=== PATIENT | male | born 1975 | race American Indian/Alaskan Native ===

== ENCOUNTER 2017-03-13 18:14 | Observation (INO) | payer MEDICAID, OTHER ==
--- NOTE | 2017-03-13 18:36 | ED PDOC ---
"Arrival/HPI - General Chief Complaint: GI Problem Time Seen by Provider: 03/13/17 18:32 Historian: Patient - History of Present Illness Narrative History of Present Illness (Text): 03/13/17 18:33 41 y/o male, pmh including perforated PUD ([facility] [place] previous alcohol abuser, c/o abdominal pain/nausea/vomiting with bright red blood started today. Pt. stated that he doesn't have any pmd or GI doctor follow up for his chronic PUD, woke up this morning with nausea and continuous vomiting which he stated that he had couple episodes of bright red blood bleeding, associated with abdominal pain, no black or discolored stool, no chest pain or shortness of breath, no night sweat, no rash, no other medical or psychological complaints. Past Medical History - Provider Review Nursing Documentation Reviewed: Yes - Past History Past History: Non-Contributing - Infectious Disease Hx of Infectious Diseases: None - Cardiac Hx Cardiac Disorders: No - Pulmonary Hx Respiratory Disorders: No - Neurological Hx Neurological Disorder: No - HEENT Hx HEENT Disorder: No - Renal Hx Renal Disorder: No - Endocrine/Metabolic Hx Endocrine Disorders: No - Hematological/Oncological Hx Blood Disorders: No - Integumentary Hx Dermatological Disorder: No - Musculoskeletal/Rheumatological Hx Musculoskeletal Disorders: No - Gastrointestinal Hx Gastrointestinal Disorders: Yes Hx Gastrointestinal Ulcer: Yes - Genitourinary/Gynecological Hx Genitourinary Disorders: No - Psychiatric Hx Psychophysiologic Disorder: No Hx Substance Use: No - Surgical History Hx Appendectomy: Yes Other/Comment: hernia repair, GI ulcer - Anesthesia Hx Anesthesia: Yes Hx Anesthesia Reactions: No Hx Malignant Hyperthermia: No Family/Social History - Physician Review Nursing Documentation Reviewed: Yes Family/Social History: Unknown Family HX Smoking Status: Light Smoker < 10 Cigarettes Daily Hx Alcohol Use: Yes Frequency of alcohol use: Socially Hx Substance Use: No Allergies/Home Meds Allergies/Adverse Reactions: Allergies No Known Allergies Allergy (Verified 03/13/17 18:26) Review of Systems - Review of Systems Constitutional: Other (+diaphoretic). absent: Fatigue, Fevers Eyes: absent: Vision Changes ENT: absent: Hearing Changes Respiratory: absent: SOB, Cough Cardiovascular: absent: Chest Pain Gastrointestinal: Abdominal Pain, Nausea, Vomiting. absent: Diarrhea Musculoskeletal: absent: Arthralgias, Back Pain Skin: absent: Rash, Pruritis Neurological: absent: Headache, Dizziness Psychiatric: absent: Anxiety, Depression, Suicidal Ideation Physical Exam Vital Signs Reviewed: Yes Vital Signs Temp Pulse Resp BP Pulse Ox 03/14/17 00:40 97.9 F 78 16 128/72 96 03/13/17 21:07 56 L 16 179/100 H 97 03/13/17 18:24 98.7 F 102 H 18 171/83 H 95 Temperature: Afebrile Blood Pressure: Hypertensive Pulse: Tachycardic Respiratory Rate: Normal Appearance: Positive for: Ill-Appearing, Uncomfortable Pain Distress: Severe Mental Status: Positive for: Alert and Oriented X 3 - Systems Exam Head: Present: Atraumatic, Normocephalic Pupils: Present: PERRL Extroacular Muscles: Present: EOMI Conjunctiva: Present: Normal Mouth: Present: Moist Mucous Membranes Neck: Present: Normal Range of Motion Respiratory/Chest: Present: Clear to Auscultation, Good Air Exchange. No: Respiratory Distress, Accessory Muscle Use Cardiovascular: Present: Regular Rate and Rhythm, Normal S1, S2. No: Murmurs Abdomen: Present: Tenderness (epigastric and generalized). No: Distention, Peritoneal Signs, Rebound, Guarding Rectal: Present: Other (Pt. declined. ) Back: Present: Normal Inspection Upper Extremity: Present: Normal Inspection. No: Cyanosis, Edema Lower Extremity: Present: Normal Inspection. No: Edema Neurological: Present: GCS=15, Speech Normal, Motor Func Grossly Intact, Gait Normal, Memory Normal Skin: Present: Warm, Dry, Normal Color. No: Rashes Psychiatric: Present: Alert, Oriented x 3, Normal Insight, Normal Concentration Medical Decision Making ED Course and Treatment: 03/13/17 18:44 -labs/lipase/ua/type and screen/pt/ptt -CT abdomen and pelvis -CXR -EKG -IVF/protonix 40/zofran 8mg IV -observe and reassess 03/13/17 21:35 -Chest xray: ER wet read, no active disease -EKG: Sinus Bradycardia @ 58 BPM, no ST elevation or depression, T wave inversion on the lead II/III/aVF, no previous ekg available for comparison. -Labs are non-significant except wbc 11.1 and troponin 0.03 (which is towards interdeterminate region). -Lipase within normal limit. -Alcohol within normal limit. -Aspirin 325mg po and pepcid 20mg po ordered. -Pt. refused guaiac. -CT abdomen and pelvis with IV contrast as he declined PO contrast show: show possible bowel wall thickening for enterocolitis. -Pt. has no diarrhea, just nausea and vomiting/abdominal pain. 03/13/17 22:36 -Pt. still having nausea and vomiting, unable to tolerate PO. -Pt. is po intolerance, visualized the bright red blood vomitus, unstable to be discharged home. -Drug screen positive for cannabinoid. -I explained to the patient that the pain possibly from the GI source but the abnormal ekg with indeterminate troponin level along with diaphoratic presentation can also be signs of ACS syndrome especially there is no previous ekg available for comparison, pt. will need to be admitted for the 24 hours troponin level and observation. 03/13/17 22:42 -I spoke to the medical review specialist, discussed about the case/labs/radiology results, will discuss with night house doctor Dr. Ramírez. Dr. Ramírez paged. -I spoke to Dr. Ramírez, discussed about the case/labs/radiology results, agreed that the patient needs to be observed overnight. - Lab Interpretations Lab Results: 03/14/17 18:30 03/14/17 05:15 Lab Results 03/14/17 18:30: Hgb 14.0, Hct 41.0 L 03/14/17 12:40: Hgb 13.6 L 03/14/17 11:45: Lactate Dehydrogenase 423, Total Creatine Kinase 293 H, CK-MB ( CK-2) 2.2, CK-MB (CK-2) % Cancelled, Troponin I 0.02 D 03/14/17 05:15: Sodium 140, Potassium 3.9, Chloride 107, Carbon Dioxide 24, Anion Gap 13, BUN 16, Creatinine 0.9, Est GFR ( Amer) > 60, Est GFR (Non- Af Amer) > 60, Random Glucose 91, Calcium 8.6, Total Bilirubin 1.3, AST 29, ALT 28, Alkaline Phosphatase 60, Lactate Dehydrogenase 457, Total Creatine Kinase 284 H, CK-MB (CK-2) 2.4, CK-MB (CK-2) % Cancelled, Troponin I 0.01, Total Protein 6.5, Albumin 3.7, Globulin 2.9, Albumin/Globulin Ratio 1.3, Triglycerides 36, Cholesterol 165, LDL Cholesterol Direct 91, HDL Cholesterol 64 H 03/14/17 05:15: WBC 12.4 H, RBC 4.42, Hgb 13.8 L D, Hct 40.2 L, MCV 91.0, MCH 31.2, MCHC 34.3, RDW 13.2, Plt Count 167, MPV 12.0 H, Gran % 76.1 H, Lymph % ( Auto) 15.8 L, Teller % (Auto) 7.8 H, Eos % (Auto) 0.2 L, Baso % (Auto) 0.1, Gran # 9.41 H, Lymph # 2.0, Teller # 1.0 H, Eos # 0.0, Baso # 0.01 03/14/17 05:15: Hemoglobin A1c 5.6 03/13/17 22:04: Lactate Dehydrogenase 467, Total Creatine Kinase 292 H, CK-MB ( CK-2) 2.8, CK-MB (CK-2) % Cancelled, Troponin I < 0.01 D 03/13/17 21:30: Urine Opiates Screen Negative, Urine Methadone Screen Negative, Ur Barbiturates Screen Negative, Ur Phencyclidine Scrn Negative, Ur Amphetamines Screen Negative, U Benzodiazepines Scrn Negative, U Oth Cocaine Metabols Negative, U Cannabinoids Screen Positive H 03/13/17 19:54: Blood Type Confirm O POSITIVE 03/13/17 19:18: Blood Type O POSITIVE, Antibody Screen Negative, BBK History Checked No verified bt 03/13/17 18:50: Alcohol, Quantitative < 10 03/13/17 18:50: WBC 11.1 H, RBC 5.20, Hgb 16.6, Hct 47.1, MCV 90.6, MCH 31.9, MCHC 35.2, RDW 12.9, Plt Count 201, MPV 12.1 H, Gran % 81.1 H, Lymph % (Auto) 12.5 L, Teller % (Auto) 6.1 H, Eos % (Auto) 0.2 L, Baso % (Auto) 0.1, Gran # 9.02 H, Lymph # 1.4, Teller # 0.7 H, Eos # 0.0, Baso # 0.01 03/13/17 18:50: Sodium 144, Potassium 3.9, Chloride 106, Carbon Dioxide 25, Anion Gap 17, BUN 16, Creatinine 0.9, Est GFR ( Amer) > 60, Est GFR (Non- Af Amer) > 60, Random Glucose 128 H, Calcium 9.7, Magnesium 1.7, Total Bilirubin 1.3, AST 36, ALT 28, Alkaline Phosphatase 92, Lactate Dehydrogenase 610, Total Creatine Kinase 330 H, CK-MB (CK-2) 2.9, CK-MB (CK-2) % Cancelled, Troponin I 0.03, Total Protein 8.7 H, Albumin 4.9 H, Globulin 3.8, Albumin/ Globulin Ratio 1.3, Lipase 91 03/13/17 18:50: PT 12.8 H, INR 1.17 H, APTT 29.2 Interpretation: Abnormal lab values (wbc 11.1 and troponin 0.03) - RAD Interpretation Radiology Orders: 03/13/17 18:36 ABD & PELVIS IV CONTRAST ONLY [CT] Stat CHEST PORTABLE [RAD] Stat FINDINGS: Lower thorax: No acute findings. ABDOMEN: Liver: Approximately 1 cm hypoattenuating focus in the right lobe of the liver incompletely characterized on this study. Gallbladder and bile ducts: No acute abnormality as visualized. No calcified stones. No ductal dilation. Pancreas: No acute abnormality as visualized. Spleen: No splenomegaly. Adrenals: No acute abnormality as visualized. Kidneys and ureters: Bilateral subcentimeter hypoattenuating lesions, too small to characterized, statistically represent cysts. Symmetric enhancement. No hydronephrosis. TERRIE HESS | Final Radiology Report CONFIDENTIALITY STATEMENT This report is intended only for use by the referring physician, and only in accordance with law. If you received this in error, call [phone]. Page 2 of 2 Stomach and bowel: Evaluation significantly limited without enteric contrast. There are areas of apparent bowel wall thickening, particularly in the region and the right colon. Although appearance may be somewhat due to lack of distention, inflammation is a concern. No bowel obstruction. Appendix: No findings to suggest acute appendicitis. PELVIS: Bladder: No acute abnormality as visualized. Reproductive: No acute abnormality as visualized. ABDOMEN and PELVIS: Intraperitoneal space: Evidence of stranding in the mesentery. No free air. No significant fluid collection. Bones: Mild degenerative changes. Vasculature: Atherosclerosis. No abdominal aortic aneurysm. Lymph nodes: No acute abnormality as visualized. Surgical clips in epigastric region. Correlate with history. IMPRESSION: Evaluation significantly limited without enteric contrast. There are areas of apparent bowel wall thickening, particularly in the region of the right colon. Although appearance may be somewhat due to lack of distention, inflammation is a concern. Correlate for colitis/ enterocolitis. Please see additional details/findings as above. Correlate clinically. Followup as warranted. Thank you for allowing us to participate in the care of your patient. Dictated and Authenticated by: Dalila Garibay MD 03/13/2017 9:02 PM Eastern Time ([place] & [place]) Chest xray: no active disease Dictating Machine Typist: Radiologist - EKG Interpretation Interpreted by ED Physician: Yes Type: 12 lead EKG - Medication Orders Current Medication Orders: Discontinued Medications Al Hydrox/Mg Hydrox/Simethicone (Maalox Plus 30 Ml) 30 ml PO STAT STA Stop: 03/13/17 21:28 Last Admin: 03/13/17 22:35 Dose: 30 ml Aspirin (Aspirin) 325 mg PO STAT STA Stop: 03/13/17 20:08 Last Admin: 03/13/17 21:04 Dose: 325 mg Diphenhydramine HCl (Benadryl) 25 mg IVP ONCE ONE Stop: 03/14/17 01:28 Last Admin: 03/14/17 01:47 Dose: 25 mg IVP Administration Document 03/14/17 01:47 (Rec: 03/14/17 01:47 [id number]) Charges for Administration # of IVP Administrations 1 Diphenhydramine HCl (Benadryl) 25 mg IVP STAT STA Stop: 03/14/17 20:55 Last Admin: 03/14/17 21:30 Dose: 25 mg IVP Administration Document 03/14/17 21:30 KTB (Rec: 03/14/17 21:31 KTB [id number]) Charges for Administration # of IVP Administrations 1 Famotidine (Pepcid) 20 mg PO STAT STA Stop: 03/13/17 20:08 Last Admin: 03/13/17 21:04 Dose: 20 mg Sodium Chloride (Sodium Chloride 0.9%) 1,000 mls @ 999 mls/hr IV .Q1H1M STA Stop: 03/13/17 19:45 Last Admin: 03/13/17 18:50 Dose: 999 mls/hr eMAR Start Stop Document 03/13/17 18:50 HI (Rec: 03/13/17 19:23 HI [id number]) Intravenous Solution Start Date 03/13/17 Start Time 18:50 Sodium Chloride (Sodium Chloride 0.9%) 1,000 mls @ 250 mls/hr IV .Q4H LUIS Last Admin: 03/13/17 18:50 Dose: 250 mls/hr eMAR Start Stop Document 03/13/17 18:50 HI (Rec: 03/13/17 19:23 HI [id number]) Intravenous Solution Start Date 03/13/17 Start Time 18:50 Sodium Chloride (Sodium Chloride 0.9%) 1,000 mls @ 125 mls/hr IV .Q8H LUIS Last Admin: 03/15/17 09:31 Dose: 125 mls/hr eMAR Start Stop Document 03/15/17 09:31 SG (Rec: 03/15/17 09:31 SG [id number]) Intravenous Solution Start Date 03/15/17 Start Time 09:31 Pantoprazole Sodium (Protonix 40mg Ivpb) 40 mg in 100 mls @ 8 mls/hr IVPB .[id number] LUIS Last Admin: 03/14/17 13:24 Dose: 8 mls/hr eMAR Start Stop Document 03/14/17 13:24 MV (Rec: 03/14/17 13:25 MV [id number]) Intravenous Solution Start Date 03/14/17 Start Time 13:25 End Date 03/14/17 Sodium Chloride (Sodium Chloride 0.9%) 1,000 mls @ 75 mls/hr IV .[id number] LUIS Stop: 03/14/17 17:46 Metoclopramide HCl (Reglan) 10 mg IVP STAT STA Stop: 03/13/17 20:47 Last Admin: 03/13/17 21:04 Dose: 10 mg IVP Administration Document 03/13/17 21:04 HI (Rec: 03/13/17 21:04 HI [id number]) Charges for Administration # of IVP Administrations 1 Morphine Sulfate (Morphine) 2 mg IVP STAT STA Stop: 03/13/17 22:39 Last Admin: 03/13/17 23:38 Dose: 2 mg IVP Administration Document 03/13/17 23:38 SC (Rec: 03/13/17 23:38 [facility] [id number]) Charges for Administration # of IVP Administrations 1 Nicotine (Nicoderm Cq) 1 patch TD DAILY PRN PRN Reason: URGE TO SMOKE Ondansetron HCl (Zofran Inj) 4 mg IVP STAT STA Stop: 03/13/17 18:39 Last Admin: 03/13/17 18:50 Dose: 4 mg IVP Administration Document 03/13/17 18:50 HI (Rec: 03/13/17 19:23 HI [id number]) Charges for Administration # of IVP Administrations 1 Ondansetron HCl (Zofran Inj) 4 mg IVP STAT STA Stop: 03/13/17 18:40 Last Admin: 03/13/17 18:50 Dose: 4 mg IVP Administration Document 03/13/17 18:50 HI (Rec: 03/13/17 19:23 HI [id number]) Charges for Administration # of IVP Administrations 1 Ondansetron HCl (Zofran Inj) 4 mg IVP Q6H PRN PRN Reason: Nausea/Vomiting Pantoprazole Sodium (Protonix Inj) 40 mg IVP STAT STA Stop: 03/13/17 18:39 Last Admin: 03/13/17 18:50 Dose: 40 mg IVP Administration Document 03/13/17 18:50 HI (Rec: 03/13/17 19:22 HI [id number]) Charges for Administration # of IVP Administrations 1 Pantoprazole Sodium (Protonix Inj) 40 mg IVP STAT STA Stop: 03/13/17 23:39 Last Admin: 03/14/17 01:13 Dose: 40 mg IVP Administration Document 03/14/17 01:13 (Rec: 03/14/17 01:14 FC [id number]) Charges for Administration # of IVP Administrations 1 Pantoprazole Sodium (Protonix Inj) 40 mg IVP Q12 LUIS Last Admin: 03/15/17 09:30 Dose: 40 mg IVP Administration Document 03/15/17 09:30 SG (Rec: 03/15/17 09:30 SG [id number]) Charges for Administration # of IVP Administrations 1 Trazodone HCl (Desyrel) 50 mg PO ONCE ONE Stop: 03/15/17 02:34 Last Admin: 03/15/17 02:42 Dose: Not Given Non-Admin Reason: 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 Disposition/Present on Arrival - Present on Arrival Any Indicators Present on Arrival: No History of DVT/PE: No History of Uncontrolled Diabetes: No Urinary Catheter: No History of Decub. Ulcer: No History Surgical Site Infection Following: None - Disposition Have Diagnosis and Disposition been Completed?: Yes Diagnosis: Abnormal EKG, Intractable vomiting with nausea, Abdominal pain Disposition: HOSPITALIZED Disposition Time: 22:36 Patient Plan: Observation Condition: STABLE"
[2017-03-13] MEDS ORDERED: Sodium Chloride 0.9% 1,000 ML IV STA (18:45)
[2017-03-13] MEDS ORDERED: Sodium Chloride 0.9% 1,000 ML IV SCH (18:45)
[2017-03-13 19:13] LABS: BASO # 0.01 K/mm3 (0.0-2.0); BASO % 0.1 % (0.0-3.0); EOS % 0.2 % (1.5-5.0); GRAN # 9.02 (1.4-6.5); GRAN % 81.1 % (50.0-68.0); HEMATOCRIT 47.1 % (42.0-52.0); LYMPH # 1.4 (1.2-3.4); LYMPH % 12.5 % (22.0-35.0); MEAN CELL VOLUME 90.6 fl (80.0-105.0); MEAN CORPUSCULAR HEMOGLOBIN 31.9 pg (25.0-35.0); MEAN CORPUSCULAR HGB CONC 35.2 g/dl (31.0-37.0); MEAN PLATELET VOLUME 12.1 fl (7.0-11.0); MONO # 0.7 (0.1-0.6); MONO % 6.1 % (1.0-6.0); RED CELL DISTRIBUTION WIDTH 12.9 % (11.5-14.5); WHITE BLOOD COUNT 11.1 10^3/ul (4.5-11.0)
[2017-03-13 19:28] LABS: INR 1.17 (0.93-1.08); PARTIAL THROMBOPLASTIN TIME 29.2 Seconds (25.1-36.5)
[2017-03-13 19:31] LABS: TROPONIN I 0.03 ng/mL
[2017-03-13 19:39] LABS: GLUCOSE,RANDOM 128 mg/dL (70-110)
[2017-03-13 19:40] LABS: ALB/GLOB RATIO 1.3 (1.1-1.8); BLOOD UREA NITROGEN 16 mg/dL (7-21); CALCIUM 9.7 mg/dL (8.4-10.5); CARBON DIOXIDE 25 mmol/L (21-33); CHLORIDE 106 mmol/L (98-107); GFR AFRICAN-AMERICAN > 60; MAGNESIUM 1.7 mg/dL (1.7-2.2); POTASSIUM 3.9 mmol/L (3.6-5.0); SODIUM 144 mmol/L (132-148); TOTAL PROTEIN 8.7 g/dL (5.8-8.3)
[2017-03-13 19:41] LABS: ALKALINE PHOSPHATASE 92 U/L (38-126); ALT/SGPT 28 U/L (7-56); AST/SGOT 36 U/L (17-59); BILIRUBIN,TOTAL 1.3 mg/dL (0.2-1.3); LIPASE 91 U/L (23-300)
[2017-03-13] MEDS ORDERED: Iohexol 350 MG/100 ML VIAL ONE (20:15)
--- NOTE | 2017-03-13 21:03 | CT ---
EXAM: CT Abdomen and Pelvis With Intravenous Contrast CLINICAL HISTORY: 41 years old, male; Pain; Abdominal pain; Acute; Additional info: Abdominal pain/nausea/vomiting TECHNIQUE: Axial computed tomography images of the abdomen and pelvis with intravenous contrast. All CT scans at this facility use one or more dose reduction techniques, viz.: automated exposure control; ma/kV adjustment per patient size (including targeted exams where dose is matched to indication; i.e. head); or iterative reconstruction technique. MIP reconstructed images were created and reviewed. Coronal and sagittal reformatted images were created and reviewed. CONTRAST: 100 mL of OMNI 350 administered intravenously. COMPARISON: No relevant prior studies available. FINDINGS: Lower thorax: No acute findings. ABDOMEN: Liver: Approximately 1 cm hypoattenuating focus in the right lobe of the liver incompletely characterized on this study. Gallbladder and bile ducts: No acute abnormality as visualized. No calcified stones. No ductal dilation. Pancreas: No acute abnormality as visualized. Spleen: No splenomegaly. Adrenals: No acute abnormality as visualized. Kidneys and ureters: Bilateral subcentimeter hypoattenuating lesions, too small to characterized, statistically represent cysts. Symmetric enhancement. No hydronephrosis. Stomach and bowel: Evaluation significantly limited without enteric contrast. There are areas of apparent bowel wall thickening, particularly in the region and the right colon. Although appearance may be somewhat due to lack of distention, inflammation is a concern. No bowel obstruction. Appendix: No findings to suggest acute appendicitis. PELVIS: Bladder: No acute abnormality as visualized. Reproductive: No acute abnormality as visualized. ABDOMEN and PELVIS: Intraperitoneal space: Evidence of stranding in the mesentery. No free air. No significant fluid collection. Bones: Mild degenerative changes. Vasculature: Atherosclerosis. No abdominal aortic aneurysm. Lymph nodes: No acute abnormality as visualized. Surgical clips in epigastric region. Correlate with history. IMPRESSION: Evaluation significantly limited without enteric contrast. There are areas of apparent bowel wall thickening, particularly in the region of the right colon. Although appearance may be somewhat due to lack of distention, inflammation is a concern. Correlate for colitis/enterocolitis. Please see additional details/findings as above. Correlate clinically. Followup as warranted.
[2017-03-13] MEDS ORDERED: metroNIDAZOLE IV 500 mg/100 ml 500 MG/100 ML BAG IVPB STA (21:12)
[2017-03-13] MEDS ORDERED: Ciprofloxacin 400mg/200ml D5W 400 MG/200 ML BAG IVPB STA (21:12)
[2017-03-13] MEDS ORDERED: Alum-Mag Hydrox-Simethicone Susp (30 mL) PO STA (21:27)
[2017-03-13] MEDS ORDERED: Morphine 2 mg/ml ISec IVP STA (21:27)
[2017-03-13] MEDS ORDERED: Morphine 5 MG/ML SYRINGE IVP STA (22:38)
[2017-03-13 22:49] LABS: TROPONIN I < 0.01 ng/mL
[2017-03-13] MEDS ORDERED: Lactated Ringer's 1,000 ML IV SCH (23:00)
--- NOTE | 2017-03-13 23:05 | CP.PCM.HP ---
<Darien Wei - Last Filed: 03/13/17 23:29> History of Present Illness - History of Present Illness History of Present Illness: CC: abdominal pain Subjective: HPI: Patient is a 41 year old male with past medical history of PUD requiring open abdominal surgery ([facility] 2009), chronic ETOH abuse, marijuana user who presents to the emergency department for evaluation and treatment of abdominal pain without a specific provoking event. The pain is described as a dull aching sensation which originates at the epigastrum, and radiates diffusely throughout the abdomen. States that he experienced emesis x 12 in the morning which became bright red as the day progressed. Denies exacerbating/relieving factors. Denies recent travel and sick contacts. Patient denies intractable headache, fever, chills, dizziness, blurry vision, ringing in the ears, chest pain, shortness of breath, diarrhea, constipation, and urinary symptoms. ROS: 12 point review of systems negative except as indicated in HPI PMHx - PUD requiring open abdominal surgery ([facility] [place] 2009) ,chronic ETOH abuse sober since 2014, Marijuana use PSHx - open abdominal surgery ([facility] [place] 2009) FHx - parents when he was young SHx - social ETOH use (2 glasses of wine with dinner last night), marijunana use daily, 1/2 ppd x 17 years Allergies- NKDA Medications- none PMD- Dr. Que Rudolph in [facility]- [facility] in [place] Physical Examination: - Constitutional Appears: Non-toxic, No Acute Distress - Head Exam Head Exam: atraumatic, normocephalic - Eye Exam Eye Exam: Normal appearance, PERRL. absent: Scleral icterus - ENT Exam ENT Exam: Mucous Membranes Moist - Neck Exam Neck exam: Normal Inspection - Respiratory Exam Respiratory Exam: Normal Breathing Pattern - Cardiovascular Exam Cardiovascular Exam: bradycardic, +S1, +S2. absent: Gallop, JVD - GI/Abdominal Exam GI & Abdominal Exam: Normal Bowel Sounds, tender to palpation in the epigastric region, absent: Distended, Guarding, Pulsatile Mass, Rebound, Rigid -Rectal Exam GI & Abdominal Exam: Deferred at this time - Extremities Exam Extremities exam: Negative for: calf tenderness - Neurological Exam Neurological exam: Patient is awake, alert, responds to verbal stimuli, answers questions appropriately, follows commands, and moves extremities past midline - Psychiatric Exam Psychiatric exam: Normal Affect, Normal Mood - Skin Skin Exam: warm and dry Assessment and Plan: Patient is a 41 year old male with past medical history of PUD requiring open abdominal surgery ([facility] [place] 2009), chronic ETOH abuse, marijuana user who was admitted for evaluation and treatment of abdominal pain. GI Bleed - NPO - 2 large bore PIV - protonix 80mg IV total given and protonix gtt @ 8mls/hr - IVF NS @ 125 - type and screen if transfusion is required - CT of abdomen w/out contrast- apparent bowel wall thickening, particularly in the region of the right colon. Although appearance may be somewhat due to lack of distention, inflammation is a concern, potential for colitis- however WBC elevation is minimal, no fever, no diarrhea - GI consulted- appreciate recommendations EKG Abnormality - rule out ACS- no chest pain, no SOB - EKG reviewed and appreciated - Sinus karon, HR 58, QTc 394, T wave inversions in II, III, AVF - repeat EKG in AM - troponins trended- negative thus far - cardiac enzymes q8h x 3 - aspirin 325 given in ED - lipid panel - HbA1c - consider cardiology consult pending patient's clinical course Nausea/Vomitting - zofran - IVF NS @125 as per ED attending - NPO Leukocytosis - likely reactive - monitor closely via CBC Tobacco Abuse, Marijuana Abuse - UDS appreciated - nicotine patch offered - smoking cessation advised - patient education provided on dangers of tobacco abuse Prophylaxis - DVT ppx- scds - GI ppx- protonix drip Patient case discussed with and plan approved by attending physician. Present on Admission - Present on Admission Any Indicators Present on Admission: No Past Patient History - Infectious Disease Hx of Infectious Diseases: None - Past Social History Smoking Status: Light Smoker < 10 Cigarettes Daily - CARDIAC Hx Cardiac Disorders: No - PULMONARY Hx Respiratory Disorders: No - NEUROLOGICAL Hx Neurological Disorder: No - HEENT Hx HEENT Problems: No - RENAL Hx Chronic Kidney Disease: No - ENDOCRINE/METABOLIC Hx Endocrine Disorders: No - HEMATOLOGICAL/ONCOLOGICAL Hx Blood Disorders: No - INTEGUMENTARY Hx Dermatological Problems: No - MUSCULOSKELETAL/RHEUMATOLOGICAL Hx Musculoskeletal Disorders: No - GASTROINTESTINAL Hx Gastrointestinal Disorders: Yes - GENITOURINARY/GYNECOLOGICAL Hx Genitourinary Disorders: No - PSYCHIATRIC Hx Psychophysiologic Disorder: No Hx Substance Use: No - SURGICAL HISTORY Hx Appendectomy: Yes Other/Comment: hernia repair, GI ulcer - ANESTHESIA Hx Anesthesia: Yes Hx Anesthesia Reactions: No Hx Malignant Hyperthermia: No Meds Allergies/Adverse Reactions: Allergies Allergy/AdvReac Type Severity Reaction Status Date / Time No Known Allergies Allergy Verified 03/13/17 18:26 Results - Vital Signs Recent Vital Signs: Last Vital Signs Temp 98.7 F 03/13/17 18:24 Pulse 56 L 03/13/17 21:07 Resp 16 03/13/17 21:07 BP 179/100 H 03/13/17 21:07 Pulse Ox 97 03/13/17 21:07 - Labs Result Diagrams: 03/13/17 18:50 03/13/17 18:50 Labs: Laboratory Results - last 24 hr 03/13/17 03/13/17 03/13/17 18:50 18:50 18:50 WBC 11.1 H RBC 5.20 Hgb 16.6 Hct 47.1 MCV 90.6 MCH 31.9 MCHC 35.2 RDW 12.9 Plt Count 201 MPV 12.1 H Gran % 81.1 H Lymph % (Auto) 12.5 L [place] % (Auto) 6.1 H Eos % (Auto) 0.2 L Baso % (Auto) 0.1 Gran # 9.02 H Lymph # 1.4 [place] # 0.7 H Eos # 0.0 Baso # 0.01 PT 12.8 H INR 1.17 H APTT 29.2 Sodium 144 Potassium 3.9 Chloride 106 Carbon Dioxide 25 Anion Gap 17 BUN 16 Creatinine 0.9 Est GFR ( Amer) > 60 Est GFR (Non-Af Amer) > 60 Random Glucose 128 H Calcium 9.7 Magnesium 1.7 Total Bilirubin 1.3 AST 36 ALT 28 Alkaline Phosphatase 92 Lactate Dehydrogenase 610 Total Creatine Kinase 330 H CK-MB (CK-2) 2.9 CK-MB (CK-2) % Cancelled Troponin I 0.03 Total Protein 8.7 H Albumin 4.9 H Globulin 3.8 Albumin/Globulin Ratio 1.3 Lipase 91 Urine Opiates Screen Urine Methadone Screen Ur Barbiturates Screen Ur Phencyclidine Scrn Ur Amphetamines Screen U Benzodiazepines Scrn U Oth Cocaine Metabols U Cannabinoids Screen Alcohol, Quantitative Blood Type Blood Type Confirm Antibody Screen BBK History Checked 03/13/17 03/13/17 03/13/17 18:50 19:18 19:54 WBC RBC Hgb Hct MCV MCH MCHC RDW Plt Count MPV Gran % Lymph % (Auto) [place] % (Auto) Eos % (Auto) Baso % (Auto) Gran # Lymph # [place] # Eos # Baso # PT INR APTT Sodium Potassium Chloride Carbon Dioxide Anion Gap BUN Creatinine Est GFR ( Amer) Est GFR (Non-Af Amer) Random Glucose Calcium Magnesium Total Bilirubin AST ALT Alkaline Phosphatase Lactate Dehydrogenase Total Creatine Kinase CK-MB (CK-2) CK-MB (CK-2) % Troponin I Total Protein Albumin Globulin Albumin/Globulin Ratio Lipase Urine Opiates Screen Urine Methadone Screen Ur Barbiturates Screen Ur Phencyclidine Scrn Ur Amphetamines Screen U Benzodiazepines Scrn U Oth Cocaine Metabols U Cannabinoids Screen Alcohol, Quantitative < 10 Blood Type O POSITIVE Blood Type Confirm O POSITIVE Antibody Screen Negative BBK History Checked No verified bt 03/13/17 03/13/17 21:30 22:04 WBC RBC Hgb Hct MCV MCH MCHC RDW Plt Count MPV Gran % Lymph % (Auto) [place] % (Auto) Eos % (Auto) Baso % (Auto) Gran # Lymph # [place] # Eos # Baso # PT INR APTT Sodium Potassium Chloride Carbon Dioxide Anion Gap BUN Creatinine Est GFR ( Amer) Est GFR (Non-Af Amer) Random Glucose Calcium Magnesium Total Bilirubin AST ALT Alkaline Phosphatase Lactate Dehydrogenase 467 Total Creatine Kinase 292 H CK-MB (CK-2) CK-MB (CK-2) % Troponin I Total Protein Albumin Globulin Albumin/Globulin Ratio Lipase Urine Opiates Screen Negative Urine Methadone Screen Negative Ur Barbiturates Screen Negative Ur Phencyclidine Scrn Negative Ur Amphetamines Screen Negative U Benzodiazepines Scrn Negative U Oth Cocaine Metabols Negative U Cannabinoids Screen Positive H Alcohol, Quantitative Blood Type Blood Type Confirm Antibody Screen BBK History Checked <Desiree PARKS,Sunny - Last Filed: 03/14/17 09:58> Results - Vital Signs Recent Vital Signs: Last Vital Signs Temp 98.3 F 03/14/17 08:59 Pulse 77 03/14/17 08:59 Resp 20 03/14/17 08:59 BP 133/68 03/14/17 08:59 Pulse Ox 100 03/14/17 08:59 - Labs Result Diagrams: 03/14/17 05:15 12/04/17 05:15 Labs: Laboratory Results - last 24 hr 03/14/17 03/14/17 05:15 05:15 WBC 12.4 H RBC 4.42 Hgb 13.8 L D Hct 40.2 L MCV 91.0 MCH 31.2 MCHC 34.3 RDW 13.2 Plt Count 167 MPV 12.0 H Gran % 76.1 H Lymph % (Auto) 15.8 L [place] % (Auto) 7.8 H Eos % (Auto) 0.2 L Baso % (Auto) 0.1 Gran # 9.41 H Lymph # 2.0 [place] # 1.0 H Eos # 0.0 Baso # 0.01 Sodium 140 Potassium 3.9 Chloride 107 Carbon Dioxide 24 Anion Gap 13 BUN 16 Creatinine 0.9 Est GFR ( Amer) > 60 Est GFR (Non-Af Amer) > 60 Random Glucose 91 Calcium 8.6 Total Bilirubin 1.3 AST 29 ALT 28 Alkaline Phosphatase 60 Lactate Dehydrogenase 457 Total Creatine Kinase 284 H CK-MB (CK-2) 2.4 CK-MB (CK-2) % Cancelled Troponin I 0.01 Total Protein 6.5 Albumin 3.7 Globulin 2.9 Albumin/Globulin Ratio 1.3 Triglycerides 36 Cholesterol 165 LDL Cholesterol Direct 91 HDL Cholesterol 64 H Attending/Attestation - Attestation I have personally seen and examined this patient.: Yes I have fully participated in the care of the patient.: Yes I have reviewed all pertinent clinical information: Yes Notes (Text): -I agree with the above H&P completed by the resident physician, with the following additions and/or changes: -The patient is a 41 year old man with a history of PUD (s/p open abdominal surgical repair at [facility] in 2009) and chronic alcohol abuse, who presents with acute hematemesis and burning abdominal pain, presumably due to PUD. Therefore, he will be kept NPO and on IVF's. Also, Protonix drip will be started and GI has been consulted. Of note, routine EKG done in the ED showed some inferior t- wave inversions (with no prior EKG's for comparison). He denies any chest pain, however. Consequently, serial trop's and EKG's, HgA1c and lipid panel have been ordered.
[2017-03-13] MEDS ORDERED: Pantoprazole 40mg/100ml IVPB 40 MG/100 ML BAG IVPB SCH (23:45)
[2017-03-14 01:11] VITALS: BMI 24.3
[2017-03-14] MEDS: Sodium Chloride 0.9% 1,000 ML IV SCH ×2 (01:14→10:35)
[2017-03-14] MEDS ORDERED: DiphenhydrAMINE 50 mg/ml Inj IVP ONE (01:27)
[2017-03-14] MEDS: Pantoprazole 40mg/100ml IVPB 40 MG/100 ML BAG IVPB SCH ×2 (01:47→13:24)
[2017-03-14 06:24] LABS: BASO # 0.01 K/mm3 (0.0-2.0); BASO % 0.1 % (0.0-3.0); EOS % 0.2 % (1.5-5.0); GRAN # 9.41 (1.4-6.5); GRAN % 76.1 % (50.0-68.0); HEMATOCRIT 40.2 % (42.0-52.0); LYMPH % 15.8 % (22.0-35.0); MEAN CORPUSCULAR HEMOGLOBIN 31.2 pg (25.0-35.0); MEAN CORPUSCULAR HGB CONC 34.3 g/dl (31.0-37.0); MONO % 7.8 % (1.0-6.0); RED CELL DISTRIBUTION WIDTH 13.2 % (11.5-14.5); WHITE BLOOD COUNT 12.4 10^3/ul (4.5-11.0)
[2017-03-14 06:36] LABS: ALB/GLOB RATIO 1.3 (1.1-1.8); ALKALINE PHOSPHATASE 60 U/L (38-126); ALT/SGPT 28 U/L (7-56); AST/SGOT 29 U/L (17-59); BILIRUBIN,TOTAL 1.3 mg/dL (0.2-1.3); BLOOD UREA NITROGEN 16 mg/dL (7-21); CALCIUM 8.6 mg/dL (8.4-10.5); CARBON DIOXIDE 24 mmol/L (21-33); CHLORIDE 107 mmol/L (98-107); CHOLESTEROL 165 mg/dL (130-200); GFR AFRICAN-AMERICAN > 60; GLUCOSE,RANDOM 91 mg/dL (70-110); POTASSIUM 3.9 mmol/L (3.6-5.0); SODIUM 140 mmol/L (132-148); TOTAL PROTEIN 6.5 g/dL (5.8-8.3)
[2017-03-14 06:49] LABS: TROPONIN I 0.01 ng/mL
--- NOTE | 2017-03-14 08:31 | RAD ---
HISTORY: medical clearance COMPARISON: No prior. FINDINGS: LUNGS: No active pulmonary disease. PLEURA: No significant pleural effusion identified, no pneumothorax apparent. CARDIOVASCULAR: Normal. OSSEOUS STRUCTURES: No significant abnormalities. VISUALIZED UPPER ABDOMEN: Normal. OTHER FINDINGS: None. IMPRESSION: No active disease.
[2017-03-14 12:18] LABS: TROPONIN I 0.02 ng/mL
--- NOTE | 2017-03-14 12:43 | CARD ---
APPROVED REPORT EKG Measurement Heart [id number] <Conclusion> Normal sinus rhythm Moderate voltage criteria for LVH, may be normal variant ST & T wave abnormality, consider anterolateral ischemia Prolonged QT Abnormal ECG
[2017-03-14] MEDS ORDERED: Sodium Chloride 0.9% 1,000 ML IV SCH (15:45)
[2017-03-14] MEDS ORDERED: Propofol 10 mg/ml Inj (20 ML) ONE ×2 (16:08→16:20)
[2017-03-14] MEDS ORDERED: Midazolam 2 MG/2 ML VIAL ONE (16:08)
--- NOTE | 2017-03-14 17:21 | CARD ---
APPROVED REPORT EXAM: Two-dimensional and M-mode echocardiogram with Doppler and color Doppler. INDICATION EKG CHANGES 2D DIMENSIONS Left Atrium (2D)2.9 (1.6-4.0cm)IVSd1.0 (0.7-1.1cm) LVDd4.5 (3.9-5.9cm)PWd1.1 (0.7-1.1cm) LVDs3.1 (2.5-4.0cm)FS (%) 31.9 % LVEF (%)60.2 (>50%) M-Mode DIMENSIONS Aortic Root2.30 (2.2-3.7cm)Aortic Cusp Exc.1.70 (1.5-2.0cm) Aortic Valve AoV Peak Lqsrxjuw666.0cm/Kiara Peak GR.13mmHg Mitral Valve MV E Cxvakjdd646.0cm/sMV A Fbhbwvfy66.0cm/sE/A ratio1.5 TDI E/Lateral E'0.0E/Medial E'0.0 Tricuspid Valve TR Peak [id number]/sRAP [id number] Peak Gr.15mmHg [id number] LEFT VENTRICLE The left ventricle is normal size. There is normal left ventricular wall thickness. The left ventricular function is normal.EF-55-60% There is normal LV segmental wall motion. The left ventricular diastolic function is normal. No left ventricle thrombus noted on this study. There is no ventricular septal defect visualized. There is no left ventricular aneurysm. There is no mass noted in the left ventricle. RIGHT VENTRICLE The right ventricle is normal size. There is normal right ventricular wall thickness. The right ventricular systolic function is normal. ATRIA The left atrium size is normal. The right atrium size is normal. The interatrial septum is intact with no evidence for an atrial septal defect. AORTIC VALVE The aortic valve is thickened but opens well. No aortic regurgitation is present. There is no aortic valvular stenosis. There is no aortic valvular vegetation. MITRAL VALVE The mitral valve is thickened but opens well. Mitral regurgitation is trace. There is no mitral valve stenosis. There is no evidence of mitral valve prolapse. TRICUSPID VALVE The tricuspid valve leaflets are thickened , but open well. There is trace to mild tricuspid regurgitation.RVSP-25 mmofHg. There is no tricuspid valve stenosis. There is no tricuspid valve prolapse or vegetation. PULMONIC VALVE The pulmonary valve is normal in structure. There is no pulmonic valvular regurgitation. There is no pulmonic valvular stenosis. GREAT VESSELS The aortic root is normal in size. The ascending aorta is normal in size. The pulmonary artery is normal. The IVC is normal in size and collapses >50% with inspiration. PERICARDIAL EFFUSION There is no pleural effusion. There is no pericardial effusion. <Conclusion> Normal Chamber Size. EF-55-60% Trace MR Trace to mild TR, RVSP-25 mmof hg.
--- NOTE | 2017-03-14 17:43 | CARD ---
APPROVED REPORT EKG Measurement Heart [id number] <Conclusion> Sinus bradycardia with marked sinus arrhythmia T wave abnormality, consider inferior ischemia Abnormal ECG
--- NOTE | 2017-03-14 19:46 | CP.PCM.PN ---
<Mahesh Mack - Last Filed: 03/14/17 19:37> Subjective - Date & Time of Evaluation Date of Evaluation: 03/14/17 Time of Evaluation: 07:30 - Subjective Subjective: Mahesh Mack DO PGY1 - Internal Medicine Progress Note Patient seen and examined at bedside. No events overnight. Patient reports improvement in his abdominal pain. No longer complaining of nausea, and no episodes of vomiting since yesterday. Patient has not yet had a bowel movement, but does endorse a normal appetite. Patient was NPO this AM and went for EGD in the afternoon. Denies chest pain, palpitations, SOB, back pain, fever, chills, new/worsening abdominal pain. Objective - Vital Signs/Intake and Output Vital Signs (last 24 hours): Temp Pulse Resp BP Pulse Ox 98 F 63 14 117/72 100 03/14/17 16:58 03/14/17 16:58 03/14/17 16:58 03/14/17 16:58 03/14/17 16:58 Intake and Output: 03/14/17 03/15/17 18:59 06:59 Intake Total 0 Output Total 375 Balance -375 - Medications Medications: Current Medications Sodium Chloride (Sodium Chloride 0.9%) 1,000 mls @ 125 mls/hr IV .Q8H [facility] Last Admin: 03/14/17 10:35 Dose: 125 mls/hr Pantoprazole Sodium (Protonix 40mg Ivpb) 40 mg in 100 mls @ 8 mls/hr IVPB .[id number] [facility] Last Admin: 03/14/17 13:24 Dose: 8 mls/hr Nicotine (Nicoderm Cq) 1 patch TD DAILY PRN PRN Reason: URGE TO SMOKE Ondansetron HCl (Zofran Inj) 4 mg IVP Q6H PRN PRN Reason: Nausea/Vomiting - Labs Labs: 03/14/17 18:30 03/14/17 05:15 PT 12.8 SECONDS (9.4-12.5) H 03/13/17 18:50 INR 1.17 (0.93-1.08) H 03/13/17 18:50 APTT 29.2 Seconds (25.1-36.5) 03/13/17 18:50 - Constitutional Appears: Non-toxic, No Acute Distress - Head Exam Head Exam: ATRAUMATIC, NORMOCEPHALIC - Eye Exam Eye Exam: EOMI, Normal appearance. absent: Scleral icterus - ENT Exam ENT Exam: Mucous Membranes Moist - Respiratory Exam Respiratory Exam: Clear to Ausculation Bilateral, NORMAL BREATHING PATTERN - Cardiovascular Exam Cardiovascular Exam: RRR, +S1, +S2 - GI/Abdominal Exam GI & Abdominal Exam: Soft, Tenderness (Mild, epigastric/RUQ/LUQ), Normal Bowel Sounds. absent: Distended, Firm, Guarding, Rigid, Organomegaly - Extremities Exam Extremities Exam: absent: Calf Tenderness, Pedal Edema - Neurological Exam Neurological Exam: Alert, Awake, Oriented x3 - Psychiatric Exam Psychiatric exam: Normal Affect, Normal Mood - Skin Skin Exam: Dry, Intact, Normal Color Assessment and Plan - Assessment and Plan (Free Text) Assessment: Assessment and Plan: Patient is a 41 year old male with past medical history of PUD requiring open abdominal surgery ([facility] [place] 2009), chronic ETOH abuse, marijuana user who was admitted for evaluation and treatment of abdominal pain. GI Bleed - NPO this AM; went for EGD today, pending report - H/H stable, no episodes of hematemesis - Maintain 2 large bore PIV - Protonix 40mg IVP Q12 - IVF NS @ 125 - CT of abdomen w/out contrast- apparent bowel wall thickening, particularly in the region of the right colon. Although appearance may be somewhat due to lack of distention, inflammation is a concern, potential for colitis- however WBC elevation is minimal, no fever, no diarrhea - GI consulted- appreciate recommendations EKG Abnormality - rule out ACS- no chest pain, no SOB - Initial EKG significant for T wave inversions in II, III, aVF - Repeat EKG significant for T-wave inversions in V2-V6 - Initial troponin indeterminate, trended down and remain negative - lipid panel WNL - HbA1c 5.6 - Ordered echocardiogram - Consult cardiology for progressive EKG changes, despite being symptom free and negative troponins Nausea/Vomiting - Likely 2/2 PUD - Zofran PRN - IVF NS @125 as per ED attending - Advance diet after EGD as tolerated; pending GI recs Leukocytosis - Mildly elevated compared to yesterday - Patient remains afebrile - Likely reactive 2/2 PUD vs GIB - Continue to monitor with daily CBC Tobacco Abuse, Marijuana Abuse - UDS appreciated - nicotine patch offered - smoking cessation advised - patient education provided on dangers of tobacco abuse Prophylaxis - DVT ppx- scds - GI ppx- protonix Patient case discussed with and plan approved by attending physician. <Alena Butcher - Last Filed: 03/14/17 21:23> Objective - Vital Signs/Intake and Output Vital Signs (last 24 hours): Temp Pulse Resp BP Pulse Ox 98 F 63 14 117/72 100 03/14/17 16:58 03/14/17 16:58 03/14/17 16:58 03/14/17 16:58 03/14/17 16:58 Intake and Output: 03/14/17 03/15/17 18:59 06:59 Intake Total 0 Output Total 375 Balance -375 - Medications Medications: Current Medications Sodium Chloride (Sodium Chloride 0.9%) 1,000 mls @ 125 mls/hr IV .Q8H [facility] Last Admin: 03/14/17 10:35 Dose: 125 mls/hr Nicotine (Nicoderm Cq) 1 patch TD DAILY PRN PRN Reason: URGE TO SMOKE Ondansetron HCl (Zofran Inj) 4 mg IVP Q6H PRN PRN Reason: Nausea/Vomiting Pantoprazole Sodium (Protonix Inj) 40 mg IVP Q12 [facility] - Labs Labs: 03/14/17 18:30 03/14/17 05:15 PT 12.8 SECONDS (9.4-12.5) H 03/13/17 18:50 INR 1.17 (0.93-1.08) H 03/13/17 18:50 APTT 29.2 Seconds (25.1-36.5) 03/13/17 18:50 Attending/Attestation - Attestation I have personally seen and examined this patient.: Yes I have fully participated in the care of the patient.: Yes I have reviewed all pertinent clinical information, including history, physical exam and plan: Yes Notes (Text): 03/14/17 21:19 41 year old male with past medical history of PUD s/p abdominal surgery, alcohol abuse, and marijuana use who presented with complaint of abdominal pain and episode of hematemesis. GI evaluation was appreciated and patient is for EGD today. Continue with protonix. He was also found to have abnormal EKG with TWI in inferior and anterior leads. He denies any chest pain. Serial troponins have been negative. Echocardiogram is ordered and cardiology evaluation is requested. He was counselled on risks of continued substance abuse and on alcohol cessation. Alena Butcher MD Hospitalist.
[2017-03-14] MEDS ORDERED: DiphenhydrAMINE 50 mg/ml Inj IVP STA (20:54)
--- NOTE | 2017-03-14 23:46 | CON ---
DATE: 03/14/2017 Preoperative evaluation, risk stratification for endoscopy, abnormal EKG. HISTORY OF PRESENT ILLNESS: This is a 41-year-old male with past history significant for peptic ulcer disease requiring 2 abdominal surgeries in 2009 and history of active tobacco abuse, history of alcohol abuse, came in with vomiting as well as bright red blood as well as melena. So, the patient is scheduled for endoscopy. EKG shows normal sinus with T-wave inversion, LVH pattern, so cardiac consult was called for preoperative evaluation and risk stratification. The patient denies of any chest pain, shortness of breath, any palpitations, so far troponin is negative. PAST MEDICAL HISTORY: Significant for peptic ulcer disease requiring abdominal surgery twice in 2009 at [facility]. First operation was done in 2009 and then the second operation because the patient is still bleeding for four months ago, four months apart the patient's other surgery was done. CURRENT MEDICATION: None. The patient denies any medicine taking at the time. FAMILY HISTORY: Noncontributory. No history of coronary artery disease though brother has hypertension. SOCIAL HISTORY: Active tobacco use, active alcohol abuse, history of marijuana use. Last marijuana on Tuesday. ALLERGIES: NO KNOWN DRUG ALLERGIES. REVIEW OF SYSTEMS: As per HPI. PHYSICAL EXAMINATION: VITAL SIGNS: Temperature afebrile, heart rate 77, and blood pressure 133/68. HEENT: PERRLA. Extraocular muscles intact. NECK: Supple. No carotid bruit or thyromegaly. HEART: S1 and S2 regular. CHEST: Clear to auscultation. ABDOMEN: Soft. EXTREMITIES: Clubbing and cyanosis negative. LABORATORY DATA: Blood workup as follows, WBC 12.4, hemoglobin 13, hematocrit 40.2, platelet count 167. Chemistry shows sodium 140, potassium 3.9, chloride 107, carbon dioxide 24, anion gap 13, BUN 16, and creatinine 0.9. Troponin 0.03, 0.01, 0.01, 0.02. EKG shows normal sinus, LVH with strain pattern, T inversion V5, V6. IMPRESSION: Left ventricular hypertrophy pattern, no acute ST-T wave changes noted, most likely secondary to left ventricular hypertrophy strain pattern. Troponin is negative. No history of dyspnea on exertion. No history of chest pain. [id number] peripheral endoscopy. No absolute contraindication. No evidence of ischemia. No evidence of arrhythmia. No evidence of congestive heart failure. The patient is clear to go for endoscopy. We will follow with you. Thank you Dr. Butcher , Dr. Kenyon for providing us the opportunity in taking care of the patient, [place]. We will follow with you. Ramon Driver MD
[2017-03-15] MEDS: Sodium Chloride 0.9% 1,000 ML IV SCH ×2 (01:16→09:31)
[2017-03-15 01:26] VITALS: O2SAT 99
[2017-03-15 06:30] LABS: BASO # 0.01 K/mm3 (0.0-2.0); BASO % 0.2 % (0.0-3.0); EOS # 0.1 (0.0-0.7); EOS % 1.4 % (1.5-5.0); GRAN # 4.21 (1.4-6.5); GRAN % 63.3 % (50.0-68.0); HEMATOCRIT 38.5 % (42.0-52.0); LYMPH # 1.7 (1.2-3.4); LYMPH % 26.1 % (22.0-35.0); MEAN CELL VOLUME 91.9 fl (80.0-105.0); MEAN CORPUSCULAR HEMOGLOBIN 31.5 pg (25.0-35.0); MEAN CORPUSCULAR HGB CONC 34.3 g/dl (31.0-37.0); MEAN PLATELET VOLUME 11.8 fl (7.0-11.0); MONO # 0.6 (0.1-0.6); RED CELL DISTRIBUTION WIDTH 13.2 % (11.5-14.5); WHITE BLOOD COUNT 6.6 10^3/ul (4.5-11.0)
[2017-03-15 06:50] LABS: ALB/GLOB RATIO 1.2 (1.1-1.8); ALKALINE PHOSPHATASE 53 U/L (38-126); ALT/SGPT 33 U/L (7-56); AST/SGOT 34 U/L (17-59); BILIRUBIN,TOTAL 1.3 mg/dL (0.2-1.3); BLOOD UREA NITROGEN 17 mg/dL (7-21); CALCIUM 8.1 mg/dL (8.4-10.5); CARBON DIOXIDE 26 mmol/L (21-33); CHLORIDE 106 mmol/L (98-107); GFR AFRICAN-AMERICAN > 60; GLUCOSE,RANDOM 83 mg/dL (70-110); POTASSIUM 3.9 mmol/L (3.6-5.0); SODIUM 138 mmol/L (132-148)
--- NOTE | 2017-03-15 07:38 | CON ---
DATE: 03/14/2017 REASON FOR CONSULTATION: Abdominal pain and vomiting. HISTORY OF PRESENT ILLNESS: This 41-year-old patient with a past medical history of peptic ulcer disease, status post surgery done in 2009 for ____ perforation, admitted with episodes of vomiting and retching. The patient also noticed small episode of bright red blood per rectum. ____. No melena. No fever. PAST MEDICAL HISTORY: Other past medical history significant as above. History of EtOH abuse in the past. PAST SURGICAL HISTORY: As above. FAMILY HISTORY: Noncontributory. SOCIAL HISTORY: Denies smoking or alcohol. REVIEW OF SYSTEMS: Positive as above. PHYSICAL EXAMINATION: GENERAL: The patient is lying on the bed, not in acute distress. VITAL SIGNS: Blood pressure is 117/72, pulse 63. Afebrile. HEENT: Atraumatic and anicteric. NECK: Supple. HEART: S1 and S2 heard. LUNGS: Bilateral air entry present. ABDOMEN: Soft. There is a midline scar noticed. There is mild tenderness in the epigastric area present. EXTREMITIES: No edema. No cyanosis. NEUROLOGIC: Alert and oriented. Moves all the extremities. LABORATORY DATA: Hemoglobin 13.8, hematocrit 40.2, WBC 12.4, platelets 167. Chemistry is essentially unremarkable except ____. The patient had a CT scan of the abdomen and pelvis with only p.o. contrast done, which was reviewed. The patient has limited study without oral contrast. IMPRESSION: This is a 41-year-old patient with a past medical history of peptic ulcer disease, status post surgery admitted with several episodes of vomiting acutely, had a small amount of vomiting blood noticed. Differential diagnoses for the bleeding should include peptic ulcer disease, erosive esophagitis, and Hallie-Marinelli tear. RECOMMENDATION: Would recommend: 1. Close followup of the hemoglobin and hematocrit. 2. IV PPI. The patient would benefit from the endoscopic evaluation and discussed with the patient at length. Risks, benefits, and alternatives explained. The informed consent was obtained. Marquez Larry MD
[2017-03-15 08:27] VITALS: BP 147/80; RESP 18; TEMP 98.6
[2017-03-15] MEDS ORDERED: Influenza Vaccine 60 mcg/0.5 mL SYR (4YR UP) IM ONE (11:14)
--- NOTE | 2017-03-15 11:16 | PN ---
DATE: 03/15/2017 REASON FOR CONSULTATION AND FOLLOWUP: Preoperative evaluation stratification for endoscopy and abnormal electrocardiogram. SUBJECTIVE: The patient denies any chest pain, shortness of breath or any palpitation. Had endoscopy done yesterday and report pending. REVIEW OF SYSTEMS: He denies any chest pain, shortness of breath or any palpitation. PHYSICAL EXAMINATION: As follows: VITAL SIGNS: Temperature is afebrile, heart rate is 58,and blood pressure is 147/80. HEENT: PERRLA. Extraocular muscles are intact. NECK: Supple. No carotid bruits or thyromegaly. CHEST: Clear to auscultation. HEART: S1 and S2, regular. ABDOMEN: Soft. EXTREMITIES: Clubbing and cyanosis negative. LABORATORY DATA: Blood workup as follows, WBC of 6.6, hemoglobin of 13.2, hematocrit of 38.5, and platelet count of 147. Chemistry shows sodium of 130, potassium of 3.9, chloride of 106, carbon dioxide of 26, anion gap of 10, BUN of 17, and creatinine of 1.0. Troponin is 0.01 and negative. DIAGNOSTIC DATA: EKG shows normal sinus, T inversion V5, V6. IMPRESSION AND PLAN: History of peptic ulcer disease, history of abdominal surgery for bleeding peptic ulcer for perforation of stomach possibly and after four months the patient had redo surgery because the patient has a bleeding again. Admitted here with bleeding, vomiting and brighter blood as well as melena. Yesterday, the patient underwent endoscopy and cleared for the cardiac point of view. So far, no complaint of any chest pain, but given the history and the lifestyle and also abnormal electrocardiogram, probably looks like more left ventricular hypertrophy in strain pattern, suggestive stress as an outpatient in four weeks. Arrangement has been made for a stress test as an outpatient. The patient had echocardiography done yesterday dated on 03/14/2017 that revealed normal chamber size, ejection fraction of 55% to 60%, trace mitral regurgitation, trace tricuspid regurgitation, and right ventricular systolic pressure of 25. Discussed in length with the patient and the telephone number for contact has been confirmed and again arrangement has been made to Cardiology department for his four weeks, so the ulcer can heal and the patient can walk on the treadmill and if he needs further procedure can be done. Currently, the patient is asymptomatic, only abnormal electrocardiogram and given the risk factor, risk of stratification of stress test has been ordered. The patient is okay to be discharged from Cardiology point of view, once okay from the Gastroenterology and the workup is completed. Ramon Driver MD
--- NOTE | 2017-03-15 13:54 | CP.PCM.PN ---
Subjective - Date & Time of Evaluation Date of Evaluation: 03/15/17 Time of Evaluation: 10:00 - Subjective Subjective: S&E at bedside, chart reviewed, family at bedside, had egd yesterday found eyrthema in fundus, chronic gastritis and duodenal erosion, BX obtained. No N/V or abdominal pain. TOlerating oral intake. No fever or chills, or overt GI bleeding. Objective - Vital Signs/Intake and Output Vital Signs (last 24 hours): Temp Pulse Resp BP Pulse Ox 98.6 F 69 18 147/80 99 03/15/17 08:26 03/15/17 10:00 03/15/17 08:26 03/15/17 08:26 03/15/17 08:26 Intake and Output: 03/15/17 03/15/17 06:59 18:59 Intake Total 1999 Balance 1999 - Medications Medications: Current Medications Nicotine (Nicoderm Cq) 1 patch TD DAILY PRN PRN Reason: URGE TO SMOKE Ondansetron HCl (Zofran Inj) 4 mg IVP Q6H PRN PRN Reason: Nausea/Vomiting Pantoprazole Sodium (Protonix Inj) 40 mg IVP Q12 LUIS Last Admin: 03/15/17 09:30 Dose: 40 mg - Labs Labs: 03/15/17 05:30 03/15/17 05:30 PT 12.8 SECONDS (9.4-12.5) H 03/13/17 18:50 INR 1.17 (0.93-1.08) H 03/13/17 18:50 APTT 29.2 Seconds (25.1-36.5) 03/13/17 18:50 - Constitutional Appears: No Acute Distress - Head Exam Head Exam: NORMOCEPHALIC - Eye Exam Eye Exam: Normal appearance. absent: Scleral icterus - ENT Exam ENT Exam: Mucous Membranes Moist - Neck Exam Neck Exam: absent: Normal Inspection - Respiratory Exam Respiratory Exam: NORMAL BREATHING PATTERN. absent: Respiratory Distress - Cardiovascular Exam Cardiovascular Exam: +S1, +S2 - GI/Abdominal Exam GI & Abdominal Exam: Soft, Normal Bowel Sounds. absent: Guarding, Tenderness, Organomegaly, Rebound - Neurological Exam Neurological Exam: Alert, Awake, Oriented x3 - Skin Skin Exam: Dry, Warm Assessment and Plan - Assessment and Plan (Free Text) Assessment: ASSESSMENT: GI bleed, hematemesis s/p EGD chronic gastritis, duodenal erosion, erythema fundus, s/p BX Abnormal EGD H/O ETOH/marijuana Tobacco use H/O PUD PLAN: continue Protonix 40 daily FU egd BX advance diet as tolerated outpt stress test as per cardiology may start low dose asprin 81 mg cadiac prophylaxis discuss w/ medical team and patient outpatient GI and medical clinic FU. Seen and discussed w/ Dr. Larry.
[2017-03-15 14:37] VITALS: PULSE 56
--- NOTE | 2017-03-15 21:03 | CP.PCM.DIS ---
<Mahesh Mack - Last Filed: 03/15/17 20:58> Provider - Provider Date of Admission: 03/14/17 21:18 Attending physician: Alena Butcher MD Primary care physician: NO PRIMARY CARE PROVIDER Consults: GI: Kendy Cardio: Park Time Spent in preparation of Discharge (in minutes): 45 Diagnosis - Discharge Diagnosis (1) GI bleed Status: Acute (2) Abdominal pain Status: Acute (3) Abnormal EKG Status: Acute Hospital Course - Lab Results Lab Results: Most Recent Lab Values WBC 6.6 10^3/ul (4.5-11.0) D 03/15/17 05:30 RBC 4.19 10^6/uL (3.5-6.1) 03/15/17 05:30 Hgb 13.2 g/dL (14.0-18.0) L 03/15/17 05:30 Hct 38.5 % (42.0-52.0) L 03/15/17 05:30 MCV 91.9 fl (80.0-105.0) 03/15/17 05:30 MCH 31.5 pg (25.0-35.0) 03/15/17 05:30 MCHC 34.3 g/dl (31.0-37.0) 03/15/17 05:30 RDW 13.2 % (11.5-14.5) 03/15/17 05:30 Plt Count 147 10^3/uL (120.0-450.0) 03/15/17 05:30 MPV 11.8 fl (7.0-11.0) H 03/15/17 05:30 Gran % 63.3 % (50.0-68.0) 03/15/17 05:30 Lymph % (Auto) 26.1 % (22.0-35.0) 03/15/17 05:30 Dubois % (Auto) 9.0 % (1.0-6.0) H 03/15/17 05:30 Eos % (Auto) 1.4 % (1.5-5.0) L 03/15/17 05:30 Baso % (Auto) 0.2 % (0.0-3.0) 03/15/17 05:30 Gran # 4.21 (1.4-6.5) 03/15/17 05:30 Lymph # 1.7 (1.2-3.4) 03/15/17 05:30 Dubois # 0.6 (0.1-0.6) 03/15/17 05:30 Eos # 0.1 (0.0-0.7) 03/15/17 05:30 Baso # 0.01 K/mm3 (0.0-2.0) 03/15/17 05:30 PT 12.8 SECONDS (9.4-12.5) H 03/13/17 18:50 INR 1.17 (0.93-1.08) H 03/13/17 18:50 APTT 29.2 Seconds (25.1-36.5) 03/13/17 18:50 Sodium 138 mmol/L (132-148) 03/15/17 05:30 Potassium 3.9 mmol/L (3.6-5.0) 03/15/17 05:30 Chloride 106 mmol/L (98-107) 03/15/17 05:30 Carbon Dioxide 26 mmol/L (21-33) 03/15/17 05:30 Anion Gap 10 (10-20) 03/15/17 05:30 BUN 17 mg/dL (7-21) 03/15/17 05:30 Creatinine 1.0 mg/dl (0.8-1.5) 03/15/17 05:30 Est GFR ( Amer) > 60 03/15/17 05:30 Est GFR (Non-Af Amer) > 60 03/15/17 05:30 Random Glucose 83 mg/dL (70-110) 03/15/17 05:30 Hemoglobin A1c 5.6 % (4.2-6.5) 03/14/17 05:15 Calcium 8.1 mg/dL (8.4-10.5) L 03/15/17 05:30 Magnesium 1.7 mg/dL (1.7-2.2) 03/13/17 18:50 Total Bilirubin 1.3 mg/dL (0.2-1.3) 03/15/17 05:30 AST 34 U/L (17-59) 03/15/17 05:30 ALT 33 U/L (7-56) 03/15/17 05:30 Alkaline Phosphatase 53 U/L (38-126) 03/15/17 05:30 Lactate Dehydrogenase 423 U/L (333-699) 03/14/17 11:45 Total Creatine Kinase 293 U/L (35-230) H 03/14/17 11:45 CK-MB (CK-2) 2.2 ng/mL (0.0-3.6) 03/14/17 11:45 CK-MB (CK-2) % Cancelled 03/13/17 18:50 Troponin I 0.02 ng/mL D 03/14/17 11:45 Total Protein 6.0 g/dL (5.8-8.3) 03/15/17 05:30 Albumin 3.3 g/dL (3.0-4.8) 03/15/17 05:30 Globulin 2.8 gm/dL 03/15/17 05:30 Albumin/Globulin Ratio 1.2 (1.1-1.8) 03/15/17 05:30 Triglycerides 36 mg/dL (35-160) 03/14/17 05:15 Cholesterol 165 mg/dL (130-200) 03/14/17 05:15 LDL Cholesterol Direct 91 mg/dL (0-129) 03/14/17 05:15 HDL Cholesterol 64 mg/dL (29-60) H 03/14/17 05:15 Lipase 91 U/L (23-300) 03/13/17 18:50 Urine Opiates Screen Negative (NEGATIVE) 03/13/17 21:30 Urine Methadone Screen Negative (NEGATIVE) 03/13/17 21:30 Ur Barbiturates Screen Negative (NEGATIVE) 03/13/17 21:30 Ur Phencyclidine Scrn Negative (NEGATIVE) 03/13/17 21:30 Ur Amphetamines Screen Negative (NEGATIVE) 03/13/17 21:30 U Benzodiazepines Scrn Negative (NEGATIVE) 03/13/17 21:30 U Oth Cocaine Metabols Negative (NEGATIVE) 03/13/17 21:30 U Cannabinoids Screen Positive (NEGATIVE) H 03/13/17 21:30 Alcohol, Quantitative < 10 mg/dL (0-10) 03/13/17 18:50 Blood Type O POSITIVE 03/13/17 19:18 Blood Type Confirm O POSITIVE 03/13/17 19:54 Antibody Screen Negative 03/13/17 19:18 BBK History Checked No verified bt 03/13/17 19:18 - Hospital Course Hospital Course: 41 yo M with PMH of alchol abuse, and PUD requiring open abdominal surgery in 2009 who initially presented for epigastric abdominal pain, nause ,vomiting, and hematemesis. During his hospitalization, patient was seen by GI who performed an EGD which showed gastritis and duodenitis with erosions, without ulcerations or active bleeding. His H&H remained stable, and his abdominal pain , nausea, and vomiting ultimately resolved after treatment with IV PPI therapy and hydration. Patient was also noted to have EKG changes concerning for ischemia, but no notable elevation in cardiac enzymes. He was also seen by cardiology who recommended outpatient stress testing. Today, patient denies any chest pain, shortness of breath, abdominal pain, nausea, vomiting, diarrhea. Reports that he feels well overall. All questions were answered to his satisfaction, and he was discharged to home. Discharge Exam - Head Exam Head Exam: NORMOCEPHALIC - Eye Exam Eye Exam: EOMI, Normal appearance, PERRL. absent: Scleral icterus - ENT Exam ENT Exam: Mucous Membranes Moist - Respiratory Exam Respiratory Exam: Clear to PA & Lateral, NORMAL BREATHING PATTERN, UNREMARKABLE - Cardiovascular Exam Cardiovascular Exam: REGULAR RHYTHM, +S1, +S2 - GI/Abdominal Exam GI & Abdominal Exam: Normal Bowel Sounds, Soft. absent: Distended, Firm, Guarding, Rebound, Rigid, Tenderness - Extremities Exam Extremities exam: normal inspection - Neurological Exam Neurological exam: Alert, CN II-XII Intact, Oriented x3 - Psychiatric Exam Psychiatric exam: Normal Affect, Normal Mood - Skin Skin Exam: Dry, Intact Discharge Plan - Discharge Medications Prescriptions: Aspirin [Aspirin Chewable] 81 mg PO DAILY #30 ctb Pantoprazole Sodium [Protonix] 40 mg PO DAILY #30 ect - Follow Up Plan Condition: STABLE Disposition: HOME/ ROUTINE Instructions: Peptic Ulcer (DC), Gastritis (DC) Additional Instructions: 1. Take Aspirin 81mg daily. It can be bought over the counter 2. Follow up with Cardiology for stress test in April 3. Take Protonix daily 4. Follow up with GI as outpatient. Referrals: [facility] [Outside] PCP,NO [Primary Care Provider] - Marquez Larry MD [Medical Doctor] - <Alena Butcher - Last Filed: 03/15/17 22:17> Provider - Provider Date of Admission: 03/14/17 21:18 Attending physician: Alena Butcher MD Primary care physician: NO PRIMARY CARE PROVIDER Hospital Course - Lab Results Lab Results: Most Recent Lab Values WBC 6.6 10^3/ul (4.5-11.0) D 03/15/17 05:30 RBC 4.19 10^6/uL (3.5-6.1) 03/15/17 05:30 Hgb 13.2 g/dL (14.0-18.0) L 03/15/17 05:30 Hct 38.5 % (42.0-52.0) L 03/15/17 05:30 MCV 91.9 fl (80.0-105.0) 03/15/17 05:30 MCH 31.5 pg (25.0-35.0) 03/15/17 05:30 MCHC 34.3 g/dl (31.0-37.0) 03/15/17 05:30 RDW 13.2 % (11.5-14.5) 03/15/17 05:30 Plt Count 147 10^3/uL (120.0-450.0) 03/15/17 05:30 MPV 11.8 fl (7.0-11.0) H 03/15/17 05:30 Gran % 63.3 % (50.0-68.0) 03/15/17 05:30 Lymph % (Auto) 26.1 % (22.0-35.0) 03/15/17 05:30 Dubois % (Auto) 9.0 % (1.0-6.0) H 03/15/17 05:30 Eos % (Auto) 1.4 % (1.5-5.0) L 03/15/17 05:30 Baso % (Auto) 0.2 % (0.0-3.0) 03/15/17 05:30 Gran # 4.21 (1.4-6.5) 03/15/17 05:30 Lymph # 1.7 (1.2-3.4) 03/15/17 05:30 Dubois # 0.6 (0.1-0.6) 03/15/17 05:30 Eos # 0.1 (0.0-0.7) 03/15/17 05:30 Baso # 0.01 K/mm3 (0.0-2.0) 03/15/17 05:30 PT 12.8 SECONDS (9.4-12.5) H 03/13/17 18:50 INR 1.17 (0.93-1.08) H 03/13/17 18:50 APTT 29.2 Seconds (25.1-36.5) 03/13/17 18:50 Sodium 138 mmol/L (132-148) 03/15/17 05:30 Potassium 3.9 mmol/L (3.6-5.0) 03/15/17 05:30 Chloride 106 mmol/L (98-107) 03/15/17 05:30 Carbon Dioxide 26 mmol/L (21-33) 03/15/17 05:30 Anion Gap 10 (10-20) 03/15/17 05:30 BUN 17 mg/dL (7-21) 03/15/17 05:30 Creatinine 1.0 mg/dl (0.8-1.5) 03/15/17 05:30 Est GFR ( Amer) > 60 03/15/17 05:30 Est GFR (Non-Af Amer) > 60 03/15/17 05:30 Random Glucose 83 mg/dL (70-110) 03/15/17 05:30 Hemoglobin A1c 5.6 % (4.2-6.5) 03/14/17 05:15 Calcium 8.1 mg/dL (8.4-10.5) L 03/15/17 05:30 Magnesium 1.7 mg/dL (1.7-2.2) 03/13/17 18:50 Total Bilirubin 1.3 mg/dL (0.2-1.3) 03/15/17 05:30 AST 34 U/L (17-59) 03/15/17 05:30 ALT 33 U/L (7-56) 03/15/17 05:30 Alkaline Phosphatase 53 U/L (38-126) 03/15/17 05:30 Lactate Dehydrogenase 423 U/L (333-699) 03/14/17 11:45 Total Creatine Kinase 293 U/L (35-230) H 03/14/17 11:45 CK-MB (CK-2) 2.2 ng/mL (0.0-3.6) 03/14/17 11:45 CK-MB (CK-2) % Cancelled 03/13/17 18:50 Troponin I 0.02 ng/mL D 03/14/17 11:45 Total Protein 6.0 g/dL (5.8-8.3) 03/15/17 05:30 Albumin 3.3 g/dL (3.0-4.8) 03/15/17 05:30 Globulin 2.8 gm/dL 03/15/17 05:30 Albumin/Globulin Ratio 1.2 (1.1-1.8) 03/15/17 05:30 Triglycerides 36 mg/dL (35-160) 03/14/17 05:15 Cholesterol 165 mg/dL (130-200) 03/14/17 05:15 LDL Cholesterol Direct 91 mg/dL (0-129) 03/14/17 05:15 HDL Cholesterol 64 mg/dL (29-60) H 03/14/17 05:15 Lipase 91 U/L (23-300) 03/13/17 18:50 Urine Opiates Screen Negative (NEGATIVE) 03/13/17 21:30 Urine Methadone Screen Negative (NEGATIVE) 03/13/17 21:30 Ur Barbiturates Screen Negative (NEGATIVE) 03/13/17 21:30 Ur Phencyclidine Scrn Negative (NEGATIVE) 03/13/17 21:30 Ur Amphetamines Screen Negative (NEGATIVE) 03/13/17 21:30 U Benzodiazepines Scrn Negative (NEGATIVE) 03/13/17 21:30 U Oth Cocaine Metabols Negative (NEGATIVE) 03/13/17 21:30 U Cannabinoids Screen Positive (NEGATIVE) H 03/13/17 21:30 Alcohol, Quantitative < 10 mg/dL (0-10) 03/13/17 18:50 Blood Type O POSITIVE 03/13/17 19:18 Blood Type Confirm O POSITIVE 03/13/17 19:54 Antibody Screen Negative 03/13/17 19:18 BBK History Checked No verified bt 03/13/17 19:18 Attending/Attestation - Attestation I have personally seen and examined this patient.: Yes I have fully participated in the care of the patient.: Yes I have reviewed all pertinent clinical information, including history, physical exam and plan: Yes Notes (Text): 03/15/17 22:15 41 year old male with past medical history of PUD s/p abdominal surgery, alcohol abuse, and marijuana use who presented with complaint of abdominal pain and episode of hematemesis. He was seen by GI and underwent EGD which showed duodenitis. He was on protonix. His symptoms resolved and his diet was advanced. He was counselled on abstinence of NSAIDs. He was also found to have abnormal EKG with TWI in inferior and anterior leads. He denied any chest pain. His echo was reviewed. He was seen by cardiology who recommended outpatient stress test in 4 weeks. He was counselled on risks of continued substance abuse and on alcohol cessation. Alena Butcher MD Hospitalist.
== END 2017-03-15 17:00 | disposition home or self-care (01) ==
LOC: ED 18:14 → ERH 22:55 → 3RNO 03-14 00:50 → OBSVTOIN 03-14 21:18 → INTOOBSV 03-14 21:18
PROVIDERS: ADMIT Internal Medicine; ATTEND Internal Medicine
DX: K92.0 Hematemesis (principal); I08.1 Rheumatic disorders of both mitral and tricuspid valves; K92.1 Melena; K26.9 Duodenal ulcer, unspecified as acute or chronic, without hemorrhage or perforation; K29.80 Duodenitis without bleeding; K29.50 Unspecified chronic gastritis without bleeding; B96.81 Helicobacter pylori [H. pylori] as the cause of diseases classified elsewhere; F12.10 Cannabis abuse, uncomplicated; F17.200 Nicotine dependence, unspecified, uncomplicated; F10.10 Alcohol abuse, uncomplicated; R94.31 Abnormal electrocardiogram [ECG] [EKG]; Y90.0 Blood alcohol level of less than 20 mg/100 ml
CPT/HCPCS: 36415; 43239; 71010; 74177; 80053; 80061; 82550; 82553; 83036; 83615; 83690; 83735; 84484; 85014; 85018; 85025; 85610; 85730; 86850; 86900; 88305; 88342; 90674; 93005; 93306; 96361; 96374; 96375; 96376; 99284; C9113; G0008; G0378; G0480; J1200; J2001; J2250; J2270; J2405; J2704; J2765; J3010; J7040; Q9967

== ENCOUNTER 2017-08-20 12:42 | Observation (INO) | payer OTHER ==
[2017-08-20] MEDS ORDERED: Sodium Chloride 0.9% 1,000 ML IV STA (13:15)
--- NOTE | 2017-08-20 13:21 | ED PDOC ---
Arrival/HPI - General Chief Complaint: Abdominal Pain Time Seen by Provider: 08/20/17 13:08 Historian: Patient - History of Present Illness Time/Duration: Other (This morning) Symptom Onset: Gradual Symptom Course: Worsening Severity Level: Severe Activities at Onset: Rest Associated Symptoms (Text): 08/20/17 13:19 Patient complains of generalized abdominal pain along with nausea and vomiting beginning this morning. No diarrhea. No fever. No travel or exposure. No back pain. No genitourinary symptoms. He has a large midline abdominal scar, he reports this is from peptic ulcer disease. Past Medical History - Past History Past History: Non-Contributing - Infectious Disease Hx of Infectious Diseases: None - Cardiac Hx Cardiac Disorders: No Hx Hypertension: Yes - Pulmonary Hx Respiratory Disorders: No - Neurological Hx Neurological Disorder: No - HEENT Hx HEENT Disorder: No - Renal Hx Renal Disorder: No - Endocrine/Metabolic Hx Endocrine Disorders: No - Hematological/Oncological Hx Blood Disorders: No - Integumentary Hx Dermatological Disorder: No - Musculoskeletal/Rheumatological Hx Musculoskeletal Disorders: No - Gastrointestinal Hx Gastrointestinal Disorders: Yes Hx Gastrointestinal Ulcer: Yes - Genitourinary/Gynecological Hx Genitourinary Disorders: No - Psychiatric Hx Psychophysiologic Disorder: No Hx Substance Use: No - Surgical History Hx Appendectomy: Yes - Anesthesia Hx Anesthesia: Yes Hx Anesthesia Reactions: No Hx Malignant Hyperthermia: No Family/Social History - Physician Review Nursing Documentation Reviewed: Yes Family/Social History: Unknown Family HX Smoking Status: Light Smoker < 10 Cigarettes Daily Hx Alcohol Use: Yes Hx Substance Use: No Allergies/Home Meds Allergies/Adverse Reactions: Allergies No Known Allergies Allergy (Verified 03/13/17 18:26) Home Medications: Home Meds Medication Instructions Recorded Confirmed No Known Home Med 04/22/17 04/22/17 Review of Systems - Physician Review All systems were reviewed & negative as marked: Yes - Review of Systems Constitutional: absent: Fatigue, Fevers Respiratory: absent: SOB, Cough Cardiovascular: absent: Chest Pain, Palpitations, Syncope Gastrointestinal: Abdominal Pain, Nausea, Vomiting, Anorexia. absent: Diarrhea Genitourinary Male: absent: Dysuria, Frequency, Hematuria Neurological: absent: Headache, Dizziness, Focal Weakness Physical Exam Vital Signs Pulse Resp BP Pulse Ox 08/20/17 15:10 74 16 150/95 H 100 08/20/17 12:51 104 H 19 142/100 H 98 Temperature: Afebrile Blood Pressure: Hypertensive Pulse: Tachycardic Respiratory Rate: Normal Appearance: Positive for: Well-Appearing, Non-Toxic, Uncomfortable Pain Distress: Severe Mental Status: Positive for: Alert and Oriented X 3, other (Writhing) - Systems Exam Head: Present: Atraumatic, Normocephalic Pupils: Present: PERRL Extroacular Muscles: Present: EOMI Conjunctiva: Present: Normal Mouth: Present: Moist Mucous Membranes Pharnyx: No: ERYTHEMA, EXUDATE, TONSILS ENLARGED Neck: Present: Normal Range of Motion Respiratory/Chest: Present: Clear to Auscultation, Good Air Exchange, Decreased Breath Sounds. No: Respiratory Distress, Accessory Muscle Use Cardiovascular: Present: Regular Rate and Rhythm, Normal S1, S2, Tachycardic. No: Murmurs Abdomen: Present: Tenderness, Normal Bowel Sounds, Scars, Other (Generalized tenderness with no distention and no tympany. No guarding and no rebound). No: Distention, Peritoneal Signs, Rebound, Guarding Back: Present: Normal Inspection Upper Extremity: Present: Normal Inspection. No: Cyanosis, Edema Lower Extremity: Present: Normal Inspection. No: Edema Neurological: Present: GCS=15, CN II-XII Intact, Speech Normal, Motor Func Grossly Intact Skin: Present: Warm, Normal Color, Diaphoretic. No: Dry, Rashes Psychiatric: Present: Alert, Oriented x 3, Normal Insight, Normal Concentration Medical Decision Making ED Course and Treatment: 08/20/17 15:07 Symptoms have improved, though the patient does not feel as if he can go home. - Lab Interpretations Lab Results: 08/20/17 13:52 08/20/17 13:52 Lab Results 08/20/17 13:52: Sodium 151 H, Potassium 4.1, Chloride 109 H, Carbon Dioxide 18 L , Anion Gap 28 H, BUN 16, Creatinine 0.8, Est GFR ( Amer) > 60, Est GFR ( Non-Af Amer) > 60, Random Glucose 82, Calcium 9.7, Magnesium 1.9, Total Bilirubin 0.8, AST 49, ALT 27, Alkaline Phosphatase 101, Total Protein 8.8 H, Albumin 5.0 H, Globulin 3.8, Albumin/Globulin Ratio 1.3, Lipase 60 08/20/17 13:52: WBC 14.2 H D, RBC 5.13, Hgb 16.1 D, Hct 45.4, MCV 88.5 D, MCH 31.4, MCHC 35.5, RDW 12.9, Plt Count 188, MPV 12.0 H, Gran % 83.9 H, Lymph % ( Auto) 8.8 L, [place] % (Auto) 7.0 H, Eos % (Auto) 0.2 L, Baso % (Auto) 0.1, Gran # 11.88 H, Lymph # (Auto) 1.3, [place] # (Auto) 1.0 H, Eos # (Auto) 0.0, Baso # (Auto ) 0.02 - RAD Interpretation Radiology Orders: 08/20/17 13:15 ABDOMEN MULTIPLE VIEW (w/OBL) [RAD] Stat 08/20/17 13:18 CHEST ONE VIEW [RAD] Stat Obstructive series and chest shows no infiltrate effusion or cardiomegaly. Nonspecific bowel gas pattern. No obstruction. 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 - Medication Orders Current Medication Orders: Discontinued Medications Sodium Chloride (Sodium Chloride 0.9%) 1,000 mls @ 1,000 mls/hr IV .Q1H STA Stop: 08/20/17 14:14 Last Admin: 08/20/17 14:18 Dose: 1,000 mls/hr eMAR Start Stop Document 08/20/17 14:18 OCS (Rec: 08/20/17 14:18 OCS [id number]) Intravenous Solution Start Date 08/20/17 Start Time 14:18 End Date 08/20/17 End time 15:18 Total Infusion Time 60 Ketorolac Tromethamine (Toradol) 15 mg IVP STAT STA Stop: 08/20/17 13:16 Last Admin: 08/20/17 13:45 Dose: 15 mg MAR Pain Assessment Document 08/20/17 13:45 OCS (Rec: 08/20/17 14:17 OCS [id number]) Pain Reassessment Is this a pain reassessment? Yes Sleep Is patient sleeping during reassessment? No Presence of Pain Presence of Pain Yes Pain Scale Used Pain Scale Used Numeric Location Pain Location Body Site Abdomen Description Description Constant Intensity of Pain at present 10 Pain Behavior Guarding Irritability Facial Grimacing Screaming Aggravating Factors ADL's IVP Administration Document 08/20/17 13:45 OCS (Rec: 08/20/17 14:17 [id number] Charges for Administration # of IVP Administrations 1 Ondansetron HCl (Zofran Inj) 4 mg IVP STAT STA Stop: 08/20/17 13:16 Last Admin: 08/20/17 13:45 Dose: 4 mg IVP Administration Document 08/20/17 13:45 OCS (Rec: 08/20/17 14:17 [id number] Charges for Administration # of IVP Administrations 1 Pantoprazole Sodium (Protonix Inj) 40 mg IVP STAT STA Stop: 08/20/17 13:16 Last Admin: 08/20/17 13:45 Dose: 40 mg IVP Administration Document 08/20/17 13:45 OCS (Rec: 08/20/17 14:16 [id number] Charges for Administration # of IVP Administrations 1 Disposition/Present on Arrival - Present on Arrival Any Indicators Present on Arrival: No History of DVT/PE: No History of Uncontrolled Diabetes: No Urinary Catheter: No History of Decub. Ulcer: No History Surgical Site Infection Following: None - Disposition Have Diagnosis and Disposition been Completed?: Yes Diagnosis: Intractable vomiting with nausea, Abdominal pain, Leukocytosis, Acidosis, Dehydration Disposition: HOSPITALIZED Disposition Time: 15:18 Patient Plan: Observation Condition: GOOD Forms: [facility] (Bel[place]ian)
[2017-08-20 14:13] LABS: BASO # 0.02 K/mm3 (0.0-2.0); BASO % 0.1 % (0.0-3.0); EOS % 0.2 % (1.5-5.0); GRAN # 11.88 (1.4-6.5); GRAN % 83.9 % (50.0-68.0); HEMOGLOBIN 16.1 g/dL (14.0-18.0); LYMPH # 1.3 (1.2-3.4); LYMPH % 8.8 % (22.0-35.0); MEAN CELL VOLUME 88.5 fl (80.0-105.0); MEAN CORPUSCULAR HEMOGLOBIN 31.4 pg (25.0-35.0); MEAN CORPUSCULAR HGB CONC 35.5 g/dl (31.0-37.0); RBC 5.13 10^6/uL (3.5-6.1); RED CELL DISTRIBUTION WIDTH 12.9 % (11.5-14.5); WHITE BLOOD COUNT 14.2 10^3/ul (4.5-11.0)
[2017-08-20 14:20] LABS: ALB/GLOB RATIO 1.3 (1.1-1.8); ALT/SGPT 27 U/L (7-56); AST/SGOT 49 U/L (17-59); BLOOD UREA NITROGEN 16 mg/dL (7-21); CALCIUM 9.7 mg/dL (8.4-10.5); GFR AFRICAN-AMERICAN > 60; GFR NON-AFRICAN AMERICAN > 60; LIPASE 60 U/L (23-300)
--- NOTE | 2017-08-20 15:11 | RAD ---
PROCEDURE: CHEST RADIOGRAPH, 1 VIEW HISTORY: AP COMPARISON: Comparison chest radiograph and CT scan of the abdomen and pelvis both dated the 03/13/2017. FINDINGS: LUNGS: Clear. PLEURA: No pneumothorax or pleural fluid seen. CARDIOVASCULAR: Normal. OSSEOUS STRUCTURES: No significant abnormalities. VISUALIZED UPPER ABDOMEN: Re- demonstrated are multiple metallic clips in the EG junction region and left lateral mid abdomen. Clinical correlation with surgical history. OTHER FINDINGS: None. IMPRESSION: No active disease.
--- NOTE | 2017-08-20 15:12 | RAD ---
HISTORY: pain, N/V COMPARISON: No prior. FINDINGS: BOWEL: Normal. No obstruction. No free air. BONES: Normal. OTHER FINDINGS: . Re- demonstrated are metallic clips in the EG junction region and left lateral mid abdomen. . There is also a single metallic clips in the right parasagittal lower abdomen/ upper pelvis region. Clinical correlation with surgical history. IMPRESSION: No evidence of acute mechanical bowel obstruction. No evidence free air.
[2017-08-20] MEDS ORDERED: Dextrose 5%/0.45% NS 1,000 ML IV SCH (16:15)
--- NOTE | 2017-08-20 16:15 | CP.PCM.HP ---
<Judy Adams - Last Filed: 08/20/17 16:29> History of Present Illness - History of Present Illness History of Present Illness: CC: Abdominal pain Patient is a 42 y/o male with PMHx of GI bleed, former alcohol abuser, PUD disease ( s/p surgery x3), tobacco and marijuana abuse, was admitted at [facility] in [place] 2018 and diagnosed with gastritis and duodenitis with erosions on EGD, presenting with diffuse abdominal pain for 1 day. Patient states last night, few minutes after drinking a "little" wine the abdominal pain started, was sharp , non radiating to the back, was 10/10, along with vomiting multiple times, the vomitus was red on occasion. Has not tried any OTC to relieve the pain. States since his last admission he has had on/off abdominal pain, but worst today. Patient admits to smoking lots of marijuana yesterday and today. States he was discharged last time with antacid, doesn't remember taking antibiotic for h. pylori. Admits to not following up with GI upon discharge. Denies Motrin, Advil, states he took asa on occasion, but has not taking any recently. Was told he has htn, but medication non compliance. Has PMD, but has not followed up in years. Denies cp, sob, no fever, admits to chills, no dysurea, no hematura, no diarrhea. No recent unwanted weight loss. No headache or dizziness. Upon reviewing prior records, patient had positive h. pylori in 03/2017 on EGD path, however upon further inquiring it appears patient was never treated due to lack of follow up. PMHx: GI bleed, former alcohol abuser, PUD disease ( s/p surgery x3), tobacco and marijuana abuse. PSHx: ? perforated PUD surgery x3 ( [id number]), EGD 03/2017 FMHx: mom and dad at very young age, don't know medical history. Social: smokes 6 cig per day for over 2 decades, smokes marijuana "alot", former alcohol abuser, but states only drink occasionally now. Denies other illicit drug use. 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 Home meds: none Allergy: NKDA Present on Admission - Present on Admission Any Indicators Present on Admission: No History of DVT/PE: No History of Uncontrolled Diabetes: No Urinary Catheter: No Decubitus Ulcer Present: No History Surgical Site Infection Following: None Review of Systems - Review of Systems All systems: reviewed and no additional remarkable complaints except Review of Systems: 12 point ROS reviewed, all negative except as per HPI. Past Patient History - Infectious Disease Hx of Infectious Diseases: None - Tetanus Immunizations Tetanus Immunization: Unknown - Past Medical History & Family History Past Medical History?: Yes - Past Social History Smoking Status: Light Smoker < 10 Cigarettes Daily Alcohol: Occasional Drugs: Cannabis Home Situation {Lives}: With Family - CARDIAC Hx Cardiac Disorders: No Hx Hypertension: Yes - PULMONARY Hx Respiratory Disorders: No - NEUROLOGICAL Hx Neurological Disorder: No - HEENT Hx HEENT Problems: No - RENAL Hx Chronic Kidney Disease: No - ENDOCRINE/METABOLIC Hx Endocrine Disorders: No - HEMATOLOGICAL/ONCOLOGICAL Hx Blood Disorders: No - INTEGUMENTARY Hx Dermatological Problems: No - MUSCULOSKELETAL/RHEUMATOLOGICAL Hx Musculoskeletal Disorders: No - GASTROINTESTINAL Hx Gastrointestinal Disorders: Yes - GENITOURINARY/GYNECOLOGICAL Hx Genitourinary Disorders: No - PSYCHIATRIC Hx Psychophysiologic Disorder: No Hx Substance Use: No - SURGICAL HISTORY Hx Appendectomy: Yes - ANESTHESIA Hx Anesthesia: Yes Hx Anesthesia Reactions: No Hx Malignant Hyperthermia: No Meds Allergies/Adverse Reactions: Allergies Allergy/AdvReac Type Severity Reaction Status Date / Time No Known Allergies Allergy Verified 08/20/17 16:34 Physical Exam - Constitutional Appears: No Acute Distress - Head Exam Head Exam: ATRAUMATIC, NORMAL INSPECTION, NORMOCEPHALIC - Eye Exam Eye Exam: EOMI, Normal appearance, PERRL. absent: Scleral icterus Pupil Exam: NORMAL ACCOMODATION - ENT Exam ENT Exam: Mucous Membranes Dry - Neck Exam Neck exam: Positive for: Normal Inspection - Respiratory Exam Respiratory Exam: Clear to Auscultation Bilateral, NORMAL BREATHING PATTERN. absent: Decreased Breath Sounds, Rales, Rhonchi, Wheezes, Respiratory Distress, Stridor - Cardiovascular Exam Cardiovascular Exam: REGULAR RHYTHM, RRR, +S1, +S2. absent: Tachycardia, Diastolic murmur, Gallop, JVD, Rubs, Systolic Murmur - GI/Abdominal Exam GI & Abdominal Exam: Normal Bowel Sounds, Soft. absent: Diminished Bowel Sounds , Distended, Firm, Guarding, Rebound, Rigid, Tenderness Additional comments: + vertical old surgical scar, no signs of infection. - Extremities Exam Extremities exam: Positive for: normal inspection. Negative for: pedal edema, tenderness - Back Exam Back exam: NORMAL INSPECTION - Neurological Exam Neurological exam: Alert, Oriented x3, Reflexes Normal - Psychiatric Exam Psychiatric exam: Normal Affect, Normal Mood - Skin Skin Exam: Abrasion, Dry, Intact, Normal Color, Warm Results - Vital Signs Recent Vital Signs: Last Vital Signs Temp Pulse 59 L 08/20/17 15:32 Resp 18 08/20/17 15:32 BP 155/88 H 08/20/17 15:32 Pulse Ox 100 08/20/17 15:32 - Labs Result Diagrams: 08/20/17 13:52 08/20/17 13:52 Labs: Laboratory Results - last 24 hr 08/20/17 08/20/17 13:52 13:52 WBC 14.2 H D RBC 5.13 Hgb 16.1 D Hct 45.4 MCV 88.5 D MCH 31.4 MCHC 35.5 RDW 12.9 Plt Count 188 MPV 12.0 H Gran % 83.9 H Lymph % (Auto) 8.8 L [place] % (Auto) 7.0 H Eos % (Auto) 0.2 L Baso % (Auto) 0.1 Gran # 11.88 H Lymph # (Auto) 1.3 [place] # (Auto) 1.0 H Eos # (Auto) 0.0 Baso # (Auto) 0.02 Sodium 151 H Potassium 4.1 Chloride 109 H Carbon Dioxide 18 L Anion Gap 28 H BUN 16 Creatinine 0.8 Est GFR ( Amer) > 60 Est GFR (Non-Af Amer) > 60 Random Glucose 82 Calcium 9.7 Magnesium 1.9 Total Bilirubin 0.8 AST 49 ALT 27 Alkaline Phosphatase 101 Total Protein 8.8 H Albumin 5.0 H Globulin 3.8 Albumin/Globulin Ratio 1.3 Lipase 60 Assessment & Plan - Assessment and Plan (Free Text) Assessment: Patient is a 42 y/o male with PMHx of GI bleed, former alcohol abuser, PUD disease ( s/p surgery x3), tobacco and marijuana abuse, was admitted at [facility] in March 2018 and diagnosed with gastritis and duodenitis with erosions on EGD, untreated h. pylori presenting with worsening diffuse abdominal pain for 1 day. Plan: 1) Intractable abdominal pain likely due to gastritis due to h. pylori, superimposed with cannabinoid Hyperemesis Syndrome versus alcohol induced, r/o sepsis - 03/27- h pylori positive on path - Gi series with no obstructions. - will start triple therapy with clarithromycin, protonix and amoxy - Gi consult - Liquid diet for now - IV hydration - utox and alcohol level - tsh - Toradol prn for pain - zofran prn for n&v 2) Hypernatremia likely due to dehydration from vomiting - will start D5 1/2 NS@150 ml/hr 3) Leukocytosis- r/o sepsis - No clinical signs of sepsis - Normal chest x-ray - however will add blood cultures, obtain ua, procal, and vbg with shock panel 4) Anion gap metabolic acidosis likely due to alcohol - IV hydration as stated above. 5) Tobacco abuse - tobacco cessation counseling and nicotine patch giving. 6) HTN- - No home meds, non compliance - Will start prn hydralazine for now. 7) DVT/Gi prophylaxis: VTE device and protonix. Patient seen, examined and case discussed with Dr Mejia. - Date & Time Date: 08/20/17 Time: 16:20 <Thi Mejia B - Last Filed: 08/21/17 11:35> Results - Vital Signs Recent Vital Signs: Last Vital Signs Temp 98.1 F 08/21/17 06:00 Pulse 72 08/21/17 06:00 Resp 20 08/21/17 06:00 BP 143/94 H 08/21/17 06:00 Pulse Ox 100 08/21/17 06:00 - Labs Result Diagrams: 08/21/17 06:00 08/21/17 06:00 Labs: Laboratory Results - last 24 hr 08/20/17 08/20/17 08/20/17 16:00 16:00 16:00 WBC RBC Hgb Hct MCV MCH MCHC RDW Plt Count MPV Gran % Lymph % (Auto) [place] % (Auto) Eos % (Auto) Baso % (Auto) Gran # Lymph # (Auto) [place] # (Auto) Eos # (Auto) Baso # (Auto) pO2 VBG pH VBG pCO2 VBG HCO3 VBG Total CO2 VBG O2 Sat (Calc) VBG Base Excess VBG Potassium Sodium Chloride Glucose Lactate FiO2 Potassium Carbon Dioxide Anion Gap BUN Creatinine Est GFR ( Amer) Est GFR (Non-Af Amer) Random Glucose Calcium Phosphorus 3.0 Magnesium 1.9 Total Bilirubin AST ALT Alkaline Phosphatase Total Protein Albumin Globulin Albumin/Globulin Ratio Procalcitonin < 0.05 L TSH 3rd Generation Venous Blood Potassium Urine Color Urine Appearance Urine pH Ur Specific [place] Urine Protein Urine Glucose (UA) Urine Ketones Urine Blood Urine Nitrate Urine Bilirubin Urine Urobilinogen Ur Leukocyte Esterase Urine RBC Urine WBC Ur Epithelial Cells Urine Bacteria Urine Opiates Screen Urine Methadone Screen Ur Barbiturates Screen Ur Phencyclidine Scrn Ur Amphetamines Screen U Benzodiazepines Scrn U Oth Cocaine Metabols U Cannabinoids Screen Alcohol, Quantitative 23 H 08/20/17 08/20/17 08/21/17 16:05 17:00 06:00 WBC 9.4 D RBC 4.31 Hgb 13.1 L D Hct 38.1 L MCV 88.4 MCH 30.4 MCHC 34.4 RDW 12.8 Plt Count 157 MPV 11.8 H Gran % 68.2 H Lymph % (Auto) 20.3 L [place] % (Auto) 9.7 H Eos % (Auto) 1.8 Baso % (Auto) 0.0 Gran # 6.39 Lymph # (Auto) 1.9 [place] # (Auto) 0.9 H Eos # (Auto) 0.2 Baso # (Auto) 0.00 pO2 115 H VBG pH 7.37 VBG pCO2 44.0 VBG HCO3 25.4 VBG Total CO2 26.8 VBG O2 Sat (Calc) 99.4 H VBG Base Excess -0.2 L VBG Potassium 4.2 Sodium 141.0 Chloride 107.0 Glucose 86 Lactate 1.9 FiO2 21.0 Potassium Carbon Dioxide Anion Gap BUN Creatinine Est GFR ( Amer) Est GFR (Non-Af Amer) Random Glucose Calcium Phosphorus Magnesium Total Bilirubin AST ALT Alkaline Phosphatase Total Protein Albumin Globulin Albumin/Globulin Ratio Procalcitonin TSH 3rd Generation 0.52 Venous Blood Potassium 4.2 Urine Color Urine Appearance Urine pH Ur Specific [place] Urine Protein Urine Glucose (UA) Urine Ketones Urine Blood Urine Nitrate Urine Bilirubin Urine Urobilinogen Ur Leukocyte Esterase Urine RBC Urine WBC Ur Epithelial Cells Urine Bacteria Urine Opiates Screen Urine Methadone Screen Ur Barbiturates Screen Ur Phencyclidine Scrn Ur Amphetamines Screen U Benzodiazepines Scrn U Oth Cocaine Metabols U Cannabinoids Screen Alcohol, Quantitative 08/21/17 08/21/17 08/21/17 06:00 06:30 06:30 WBC RBC Hgb Hct MCV MCH MCHC RDW Plt Count MPV Gran % Lymph % (Auto) [place] % (Auto) Eos % (Auto) Baso % (Auto) Gran # Lymph # (Auto) [place] # (Auto) Eos # (Auto) Baso # (Auto) pO2 VBG pH VBG pCO2 VBG HCO3 VBG Total CO2 VBG O2 Sat (Calc) VBG Base Excess VBG Potassium Sodium 141 Chloride 106 Glucose Lactate FiO2 Potassium 3.8 Carbon Dioxide 26 Anion Gap 13 BUN 19 Creatinine 0.9 Est GFR ( Amer) > 60 Est GFR (Non-Af Amer) > 60 Random Glucose 100 Calcium 8.3 L Phosphorus Magnesium Total Bilirubin 1.0 AST 36 ALT 25 Alkaline Phosphatase 60 Total Protein 6.2 Albumin 3.5 Globulin 2.8 Albumin/Globulin Ratio 1.3 Procalcitonin TSH 3rd Generation Venous Blood Potassium Urine Color Yellow Urine Appearance Clear Urine pH 6.0 Ur Specific [place] 1.025 Urine Protein Trace H Urine Glucose (UA) Negative Urine Ketones 15 H Urine Blood Negative Urine Nitrate Negative Urine Bilirubin Negative Urine Urobilinogen 1.0 H Ur Leukocyte Esterase Negative Urine RBC Negative Urine WBC 0 - 2 Ur Epithelial Cells 0 - 2 Urine Bacteria Neg Urine Opiates Screen Negative Urine Methadone Screen Negative Ur Barbiturates Screen Negative Ur Phencyclidine Scrn Negative Ur Amphetamines Screen Negative U Benzodiazepines Scrn Negative U Oth Cocaine Metabols Negative U Cannabinoids Screen Positive H Alcohol, Quantitative Attending/Attestation - Attestation I have personally seen and examined this patient.: Yes I have fully participated in the care of the patient.: Yes I have reviewed all pertinent clinical information: Yes Notes (Text): I have seen and examined the patient at bedside. Agree with the above note with the following additions/ exceptions: Briefly this is 42 year old male with history of PUD, perforated viscus followed by surgey x 2, tobacco use, alcohol abuse, marijuana abuse who came today for evalation of intractable vomiting and severe abdominal pain which has improved somewhat since he came to ED. Upon reviweing his chart, it was found that he was diagnosed with HPylori infection however he never followed up and was not treated. Will start patient on triple therapy. Pateint has no allergies. Will start clear liquid diet. Will consult GI. He has AGMA due to alcohol abuse. Will order work up to r/o infection as he has leukocytosis. I think this is due to dehydration. Counselling provided regarding alcohol, tobacco and marijuana use. Advised patient to follow up with [facility] clinic.
[2017-08-20 16:20] LABS: VENOUS BLOOD GAS BASE EXCESS -0.2 mmol/L (0.0-2.0); VENOUS BLOOD GAS PO2 115 mm/Hg (30-55); VENOUS BLOOD PH 7.37 (7.32-7.43)
[2017-08-20 19:40] VITALS: BMI 25.2
[2017-08-20] MEDS ORDERED: Pneumococcal 23-Valent Vaccine IM ONE (19:40)
[2017-08-21 07:06] LABS: URINE BILIRUBIN NEGATIVE (NEGATIVE); URINE BLOOD NEGATIVE (NEGATIVE); URINE GLUCOSE (UA) NEGATIVE (NEGATIVE); URINE LEUKOCYTE ESTERASE NEGATIVE Leu/uL (NEGATIVE); URINE PROTEIN TRACE mg/dL (<30 mg/dL)
[2017-08-21 07:07] LABS: EOS # 0.2 (0.0-0.7); EOS % 1.8 % (1.5-5.0); GRAN # 6.39 (1.4-6.5); GRAN % 68.2 % (50.0-68.0); HEMOGLOBIN 13.1 g/dL (14.0-18.0); LYMPH # 1.9 (1.2-3.4); LYMPH % 20.3 % (22.0-35.0); MEAN CELL VOLUME 88.4 fl (80.0-105.0); MEAN CORPUSCULAR HEMOGLOBIN 30.4 pg (25.0-35.0); MEAN CORPUSCULAR HGB CONC 34.4 g/dl (31.0-37.0); MEAN PLATELET VOLUME 11.8 fl (7.0-11.0); MONO # 0.9 (0.1-0.6); MONO % 9.7 % (1.0-6.0); RBC 4.31 10^6/uL (3.5-6.1); RED CELL DISTRIBUTION WIDTH 12.8 % (11.5-14.5); WHITE BLOOD COUNT 9.4 10^3/ul (4.5-11.0)
[2017-08-21 07:14] LABS: URINE APPEARANCE CLEAR (CLEAR); URINE COLOR YELLOW (YELLOW)
[2017-08-21 07:27] LABS: ALB/GLOB RATIO 1.3 (1.1-1.8); ALBUMIN 3.5 g/dL (3.0-4.8); ALT/SGPT 25 U/L (7-56); AST/SGOT 36 U/L (17-59); BLOOD UREA NITROGEN 19 mg/dL (7-21); CALCIUM 8.3 mg/dL (8.4-10.5); GFR AFRICAN-AMERICAN > 60; GFR NON-AFRICAN AMERICAN > 60
[2017-08-21 07:27] LABS: BARBITURATES, UR NEGATIVE (NEGATIVE); BENZODIAZEPINES, UR NEGATIVE (NEGATIVE); OPIATES, UR NEGATIVE (NEGATIVE); PHENCYCLIDINE, UR NEGATIVE (NEGATIVE)
[2017-08-21 07:41] LABS: URINE BACTERIA NEG (NEG); URINE EPITHELIAL CELLS 0 - 2 /hpf (0-5); URINE RBC NEGATIVE /hpf (0-2); URINE WBC 0 - 2 /hpf (0-6)
--- NOTE | 2017-08-21 10:15 | CP.PCM.CON ---
<Julisa Salgado - Last Filed: 08/21/17 10:09> History of Present Illness - History of Present Illness History of Present Illness: GI Fellow PGY4 Consult Note This is a 42 y/o male with PMHx of GI bleed, alcohol abuse, PUD disease s/p pyloroplasty, tobacco and marijuana abuse presenting with complaints of acute abdominal pain in epigastric region, stabbing sensation with associated nausea and vomiting. Pt reports pain started soon after drinking wine. Patient admits to smoking lots of marijuana yesterday and today. In March 2017 pt had an EGD and diagnosed with gastritis and duodenitis with erosions and path positive for h.pylori. Pt reports he did not take any antibiotics for h. pylori infection and only take PPI daily. Admits to not following up with GI upon discharge. No NSAIDs. Denies cp, sob, no fever, admits to chills, no dysurea, no hematura, no diarrhea. No recent unwanted weight loss. No headache or dizziness. ROS: A 12pt ROS was negative except as above. PMHx: As stated above PSHx: perforated PUD surgery x3 ( [id number]), EGD 03/2017 FMHx: mom and dad at very young age, don't know medical history. Social: smokes 6 cig per day for over 2 decades, smokes marijuana "alot", alcohol abuse, drinks wine and beer multiple times a week no hard liquor. Past Patient History - Infectious Disease Hx of Infectious Diseases: None - Tetanus Immunizations Tetanus Immunization: Unknown - Past Medical History & Family History Past Medical History?: Yes - Past Social History Smoking Status: Current Some Days Smoker - CARDIAC Hx Cardiac Disorders: Yes Hx Hypertension: Yes - PULMONARY Hx Respiratory Disorders: Yes (SMOKES CIGARETTES 6/D.SMOKES MARIJUANA.) - NEUROLOGICAL Hx Neurological Disorder: No - HEENT Hx HEENT Problems: No - RENAL Hx Chronic Kidney Disease: No - ENDOCRINE/METABOLIC Hx Endocrine Disorders: No - HEMATOLOGICAL/ONCOLOGICAL Hx Blood Disorders: No - INTEGUMENTARY Hx Dermatological Problems: No - MUSCULOSKELETAL/RHEUMATOLOGICAL Hx Musculoskeletal Disorders: No Hx Falls: No - GASTROINTESTINAL Hx Gastrointestinal Disorders: Yes (GASTRITIS,DUODENITITS WITH EROSIONS ON EGD) Hx Ulcer: Yes (PUD WITH 3X SX) Other/Comment: H. PYLORI - GENITOURINARY/GYNECOLOGICAL Hx Genitourinary Disorders: No - PSYCHIATRIC Hx Psychophysiologic Disorder: No (SMOKES CIGARETTES,ETOH ABUSE,SMOKES MARIJUANA ) Hx Substance Use: Yes (SMOKES MARIJUANA. LAST SMOKED 08-19-17) - SURGICAL HISTORY Hx Surgeries: Yes (PUD SX X 3.) Hx Appendectomy: Yes - ANESTHESIA Hx Anesthesia: Yes Hx Anesthesia Reactions: No Hx Malignant Hyperthermia: No Meds Allergies/Adverse Reactions: Allergies Allergy/AdvReac Type Severity Reaction Status Date / Time No Known Allergies Allergy Verified 08/20/17 16:34 - Medications Medications: Current Medications Amoxicillin (Amoxil 500 Mg Cap) 1,000 mg PO Q12 [facility] PRN Reason: Protocol Stop: 08/30/17 22:01 Last Admin: 08/21/17 09:37 Dose: 1,000 mg Clarithromycin (Biaxin Filmtab) 500 mg PO Q12 [facility] PRN Reason: Protocol Stop: 08/30/17 22:01 Last Admin: 08/21/17 09:55 Dose: 500 mg Dextrose/Sodium Chloride (Dextrose 5%/0.45% Ns 1000 Ml) 1,000 mls @ 150 mls/hr IV .Q6H40M [facility] Nicotine (Nicoderm Cq) 1 patch TD DAILY [facility] Last Admin: 08/21/17 09:38 Dose: 1 patch Ondansetron HCl (Zofran Inj) 4 mg IVP Q4H PRN PRN Reason: Nausea/Vomiting Pantoprazole Sodium (Protonix Inj) 40 mg IVP DAILY [facility] Last Admin: 08/21/17 09:38 Dose: 40 mg Physical Exam - Constitutional Appears: Non-toxic, No Acute Distress - Head Exam Head Exam: ATRAUMATIC, NORMAL INSPECTION, NORMOCEPHALIC - Eye Exam Eye Exam: EOMI, Normal appearance, PERRL Pupil Exam: PERRL - ENT Exam ENT Exam: Mucous Membranes Moist, Normal Exam - Neck Exam Neck exam: Positive for: Normal Inspection - Respiratory Exam Respiratory Exam: Clear to Auscultation Bilateral, NORMAL BREATHING PATTERN - Cardiovascular Exam Cardiovascular Exam: REGULAR RHYTHM, RRR, +S1, +S2 - GI/Abdominal Exam GI & Abdominal Exam: Normal Bowel Sounds, Soft, Tenderness. absent: Distended, Organomegaly - Extremities Exam Extremities exam: Positive for: full ROM, normal inspection - Back Exam Back exam: FULL ROM, NORMAL INSPECTION - Neurological Exam Neurological exam: Alert, Oriented x3 - Psychiatric Exam Psychiatric exam: Normal Affect, Normal Mood - Skin Skin Exam: Dry, Intact, Normal Color, Warm Results - Vital Signs Recent Vital Signs: Last Vital Signs Temp 98.1 F 08/21/17 06:00 Pulse 72 08/21/17 06:00 Resp 20 08/21/17 06:00 BP 143/94 H 08/21/17 06:00 Pulse Ox 100 08/21/17 06:00 - Labs Result Diagrams: 08/21/17 06:00 08/21/17 06:00 Labs: Laboratory Results - last 24 hr 08/20/17 08/20/17 08/20/17 16:00 16:00 16:00 WBC RBC Hgb Hct MCV MCH MCHC RDW Plt Count MPV Gran % Lymph % (Auto) [place] % (Auto) Eos % (Auto) Baso % (Auto) Gran # Lymph # (Auto) [place] # (Auto) Eos # (Auto) Baso # (Auto) pO2 VBG pH VBG pCO2 VBG HCO3 VBG Total CO2 VBG O2 Sat (Calc) VBG Base Excess VBG Potassium Sodium Chloride Glucose Lactate FiO2 Potassium Carbon Dioxide Anion Gap BUN Creatinine Est GFR ( Amer) Est GFR (Non-Af Amer) Random Glucose Calcium Phosphorus 3.0 Magnesium 1.9 Total Bilirubin AST ALT Alkaline Phosphatase Total Protein Albumin Globulin Albumin/Globulin Ratio Procalcitonin < 0.05 L TSH 3rd Generation Venous Blood Potassium Urine Color Urine Appearance Urine pH Ur Specific [place] Urine Protein Urine Glucose (UA) Urine Ketones Urine Blood Urine Nitrate Urine Bilirubin Urine Urobilinogen Ur Leukocyte Esterase Urine RBC Urine WBC Ur Epithelial Cells Urine Bacteria Urine Opiates Screen Urine Methadone Screen Ur Barbiturates Screen Ur Phencyclidine Scrn Ur Amphetamines Screen U Benzodiazepines Scrn U Oth Cocaine Metabols U Cannabinoids Screen Alcohol, Quantitative 23 H 08/20/17 08/20/17 08/21/17 16:05 17:00 06:00 WBC 9.4 D RBC 4.31 Hgb 13.1 L D Hct 38.1 L MCV 88.4 MCH 30.4 MCHC 34.4 RDW 12.8 Plt Count 157 MPV 11.8 H Gran % 68.2 H Lymph % (Auto) 20.3 L [place] % (Auto) 9.7 H Eos % (Auto) 1.8 Baso % (Auto) 0.0 Gran # 6.39 Lymph # (Auto) 1.9 [place] # (Auto) 0.9 H Eos # (Auto) 0.2 Baso # (Auto) 0.00 pO2 115 H VBG pH 7.37 VBG pCO2 44.0 VBG HCO3 25.4 VBG Total CO2 26.8 VBG O2 Sat (Calc) 99.4 H VBG Base Excess -0.2 L VBG Potassium 4.2 Sodium 141.0 Chloride 107.0 Glucose 86 Lactate 1.9 FiO2 21.0 Potassium Carbon Dioxide Anion Gap BUN Creatinine Est GFR ( Amer) Est GFR (Non-Af Amer) Random Glucose Calcium Phosphorus Magnesium Total Bilirubin AST ALT Alkaline Phosphatase Total Protein Albumin Globulin Albumin/Globulin Ratio Procalcitonin TSH 3rd Generation 0.52 Venous Blood Potassium 4.2 Urine Color Urine Appearance Urine pH Ur Specific [place] Urine Protein Urine Glucose (UA) Urine Ketones Urine Blood Urine Nitrate Urine Bilirubin Urine Urobilinogen Ur Leukocyte Esterase Urine RBC Urine WBC Ur Epithelial Cells Urine Bacteria Urine Opiates Screen Urine Methadone Screen Ur Barbiturates Screen Ur Phencyclidine Scrn Ur Amphetamines Screen U Benzodiazepines Scrn U Oth Cocaine Metabols U Cannabinoids Screen Alcohol, Quantitative 08/21/17 08/21/17 08/21/17 06:00 06:30 06:30 WBC RBC Hgb Hct MCV MCH MCHC RDW Plt Count MPV Gran % Lymph % (Auto) [place] % (Auto) Eos % (Auto) Baso % (Auto) Gran # Lymph # (Auto) [place] # (Auto) Eos # (Auto) Baso # (Auto) pO2 VBG pH VBG pCO2 VBG HCO3 VBG Total CO2 VBG O2 Sat (Calc) VBG Base Excess VBG Potassium Sodium 141 Chloride 106 Glucose Lactate FiO2 Potassium 3.8 Carbon Dioxide 26 Anion Gap 13 BUN 19 Creatinine 0.9 Est GFR ( Amer) > 60 Est GFR (Non-Af Amer) > 60 Random Glucose 100 Calcium 8.3 L Phosphorus Magnesium Total Bilirubin 1.0 AST 36 ALT 25 Alkaline Phosphatase 60 Total Protein 6.2 Albumin 3.5 Globulin 2.8 Albumin/Globulin Ratio 1.3 Procalcitonin TSH 3rd Generation Venous Blood Potassium Urine Color Yellow Urine Appearance Clear Urine pH 6.0 Ur Specific [place] 1.025 Urine Protein Trace H Urine Glucose (UA) Negative Urine Ketones 15 H Urine Blood Negative Urine Nitrate Negative Urine Bilirubin Negative Urine Urobilinogen 1.0 H Ur Leukocyte Esterase Negative Urine RBC Negative Urine WBC 0 - 2 Ur Epithelial Cells 0 - 2 Urine Bacteria Neg Urine Opiates Screen Negative Urine Methadone Screen Negative Ur Barbiturates Screen Negative Ur Phencyclidine Scrn Negative Ur Amphetamines Screen Negative U Benzodiazepines Scrn Negative U Oth Cocaine Metabols Negative U Cannabinoids Screen Positive H Alcohol, Quantitative Assessment & Plan - Assessment and Plan (Free Text) Assessment: This is a 42yM presenting with abdominal pain, N/V. 1. Abdominal pain, N/V 2. H.pylori infection 3. Gastritis, duodenitis 4. Alcohol abuse 5. Cannabis Induced Cyclical vomiting syndrome Plan: -Continue supportive care -Advance diet as tolerated -Pt with untreated H.pylori infection -Treatment with Amoxicillin 1000mg bid, clarithromycin 500mg bid, PPI 40mg BID for 14 days -After completion of abx course, 2months later pt will need outpt stool antigen for H.pylori infection to confirm eradication -Symptoms can also be due to alcohol and cannabis use -Discussed with pt need to avoid these drugs to prevent exacerbation of symptoms -Please call with any questions or concerns <Lyle Owen - Last Filed: 08/21/17 11:46> Meds - Medications Medications: Current Medications Amoxicillin (Amoxil 500 Mg Cap) 1,000 mg PO Q12 [facility] PRN Reason: Protocol Stop: 08/30/17 22:01 Last Admin: 08/21/17 09:37 Dose: 1,000 mg Clarithromycin (Biaxin Filmtab) 500 mg PO Q12 [facility] PRN Reason: Protocol Stop: 08/30/17 22:01 Last Admin: 08/21/17 09:55 Dose: 500 mg Dextrose/Sodium Chloride (Dextrose 5%/0.45% Ns 1000 Ml) 1,000 mls @ 150 mls/hr IV .Q6H40M [facility] Nicotine (Nicoderm Cq) 1 patch TD DAILY [facility] Last Admin: 08/21/17 09:38 Dose: 1 patch Ondansetron HCl (Zofran Inj) 4 mg IVP Q4H PRN PRN Reason: Nausea/Vomiting Pantoprazole Sodium (Protonix Ec Tab) 40 mg PO 0600,1600 [facility] Results - Vital Signs Recent Vital Signs: Last Vital Signs Temp 98.1 F 08/21/17 06:00 Pulse 72 08/21/17 06:00 Resp 20 08/21/17 06:00 BP 143/94 H 08/21/17 06:00 Pulse Ox 100 08/21/17 06:00 - Labs Result Diagrams: 08/21/17 06:00 08/21/17 06:00 Labs: Laboratory Results - last 24 hr 08/20/17 08/20/17 08/20/17 16:00 16:00 16:00 WBC RBC Hgb Hct MCV MCH MCHC RDW Plt Count MPV Gran % Lymph % (Auto) [place] % (Auto) Eos % (Auto) Baso % (Auto) Gran # Lymph # (Auto) [place] # (Auto) Eos # (Auto) Baso # (Auto) pO2 VBG pH VBG pCO2 VBG HCO3 VBG Total CO2 VBG O2 Sat (Calc) VBG Base Excess VBG Potassium Sodium Chloride Glucose Lactate FiO2 Potassium Carbon Dioxide Anion Gap BUN Creatinine Est GFR ( Amer) Est GFR (Non-Af Amer) Random Glucose Calcium Phosphorus 3.0 Magnesium 1.9 Total Bilirubin AST ALT Alkaline Phosphatase Total Protein Albumin Globulin Albumin/Globulin Ratio Procalcitonin < 0.05 L TSH 3rd Generation Venous Blood Potassium Urine Color Urine Appearance Urine pH Ur Specific [place] Urine Protein Urine Glucose (UA) Urine Ketones Urine Blood Urine Nitrate Urine Bilirubin Urine Urobilinogen Ur Leukocyte Esterase Urine RBC Urine WBC Ur Epithelial Cells Urine Bacteria Urine Opiates Screen Urine Methadone Screen Ur Barbiturates Screen Ur Phencyclidine Scrn Ur Amphetamines Screen U Benzodiazepines Scrn U Oth Cocaine Metabols U Cannabinoids Screen Alcohol, Quantitative 23 H 08/20/17 08/20/17 08/21/17 16:05 17:00 06:00 WBC 9.4 D RBC 4.31 Hgb 13.1 L D Hct 38.1 L MCV 88.4 MCH 30.4 MCHC 34.4 RDW 12.8 Plt Count 157 MPV 11.8 H Gran % 68.2 H Lymph % (Auto) 20.3 L [place] % (Auto) 9.7 H Eos % (Auto) 1.8 Baso % (Auto) 0.0 Gran # 6.39 Lymph # (Auto) 1.9 [place] # (Auto) 0.9 H Eos # (Auto) 0.2 Baso # (Auto) 0.00 pO2 115 H VBG pH 7.37 VBG pCO2 44.0 VBG HCO3 25.4 VBG Total CO2 26.8 VBG O2 Sat (Calc) 99.4 H VBG Base Excess -0.2 L VBG Potassium 4.2 Sodium 141.0 Chloride 107.0 Glucose 86 Lactate 1.9 FiO2 21.0 Potassium Carbon Dioxide Anion Gap BUN Creatinine Est GFR ( Amer) Est GFR (Non-Af Amer) Random Glucose Calcium Phosphorus Magnesium Total Bilirubin AST ALT Alkaline Phosphatase Total Protein Albumin Globulin Albumin/Globulin Ratio Procalcitonin TSH 3rd Generation 0.52 Venous Blood Potassium 4.2 Urine Color Urine Appearance Urine pH Ur Specific [place] Urine Protein Urine Glucose (UA) Urine Ketones Urine Blood Urine Nitrate Urine Bilirubin Urine Urobilinogen Ur Leukocyte Esterase Urine RBC Urine WBC Ur Epithelial Cells Urine Bacteria Urine Opiates Screen Urine Methadone Screen Ur Barbiturates Screen Ur Phencyclidine Scrn Ur Amphetamines Screen U Benzodiazepines Scrn U Oth Cocaine Metabols U Cannabinoids Screen Alcohol, Quantitative 08/21/17 08/21/17 08/21/17 06:00 06:30 06:30 WBC RBC Hgb Hct MCV MCH MCHC RDW Plt Count MPV Gran % Lymph % (Auto) [place] % (Auto) Eos % (Auto) Baso % (Auto) Gran # Lymph # (Auto) [place] # (Auto) Eos # (Auto) Baso # (Auto) pO2 VBG pH VBG pCO2 VBG HCO3 VBG Total CO2 VBG O2 Sat (Calc) VBG Base Excess VBG Potassium Sodium 141 Chloride 106 Glucose Lactate FiO2 Potassium 3.8 Carbon Dioxide 26 Anion Gap 13 BUN 19 Creatinine 0.9 Est GFR ( Amer) > 60 Est GFR (Non-Af Amer) > 60 Random Glucose 100 Calcium 8.3 L Phosphorus Magnesium Total Bilirubin 1.0 AST 36 ALT 25 Alkaline Phosphatase 60 Total Protein 6.2 Albumin 3.5 Globulin 2.8 Albumin/Globulin Ratio 1.3 Procalcitonin TSH 3rd Generation Venous Blood Potassium Urine Color Yellow Urine Appearance Clear Urine pH 6.0 Ur Specific [place] 1.025 Urine Protein Trace H Urine Glucose (UA) Negative Urine Ketones 15 H Urine Blood Negative Urine Nitrate Negative Urine Bilirubin Negative Urine Urobilinogen 1.0 H Ur Leukocyte Esterase Negative Urine RBC Negative Urine WBC 0 - 2 Ur Epithelial Cells 0 - 2 Urine Bacteria Neg Urine Opiates Screen Negative Urine Methadone Screen Negative Ur Barbiturates Screen Negative Ur Phencyclidine Scrn Negative Ur Amphetamines Screen Negative U Benzodiazepines Scrn Negative U Oth Cocaine Metabols Negative U Cannabinoids Screen Positive H Alcohol, Quantitative Attending/Attestation - Attestation I have personally seen and examined this patient.: Yes I have fully participated in the care of the patient.: Yes I have reviewed all pertinent clinical information: Yes Notes (Text): 08/21/17 11:46 42 year old male with h/o etoh abuse a/w abdominal pain, N/V. H/o untreated h pylori. Recommend triple therapy. Etoh cessation. Advance diet as tolerated. Confirm eradication in 1-2 months. Will sign off.
[2017-08-21 15:21] VITALS: BP 148/90; PULSE 66; RESP 18; TEMP 98.3; O2SAT 99
--- NOTE | 2017-08-21 15:37 | CP.PCM.DIS ---
<Jose Alfredo Blount - Last Filed: 08/21/17 15:35> Provider - Provider Date of Admission: 08/20/17 15:17 Attending physician: Thi Mejia MD Consults: ALEJA: Brayden Time Spent in preparation of Discharge (in minutes): 45 Hospital Course - Lab Results Lab Results: Most Recent Lab Values WBC 9.4 10^3/ul (4.5-11.0) D 08/21/17 06:00 RBC 4.31 10^6/uL (3.5-6.1) 08/21/17 06:00 Hgb 13.1 g/dL (14.0-18.0) L D 08/21/17 06:00 Hct 38.1 % (42.0-52.0) L 08/21/17 06:00 MCV 88.4 fl (80.0-105.0) 08/21/17 06:00 MCH 30.4 pg (25.0-35.0) 08/21/17 06:00 MCHC 34.4 g/dl (31.0-37.0) 08/21/17 06:00 RDW 12.8 % (11.5-14.5) 08/21/17 06:00 Plt Count 157 10^3/uL (120.0-450.0) 08/21/17 06:00 MPV 11.8 fl (7.0-11.0) H 08/21/17 06:00 Gran % 68.2 % (50.0-68.0) H 08/21/17 06:00 Lymph % (Auto) 20.3 % (22.0-35.0) L 08/21/17 06:00 [place] % (Auto) 9.7 % (1.0-6.0) H 08/21/17 06:00 Eos % (Auto) 1.8 % (1.5-5.0) 08/21/17 06:00 Baso % (Auto) 0.0 % (0.0-3.0) 08/21/17 06:00 Gran # 6.39 (1.4-6.5) 08/21/17 06:00 Lymph # (Auto) 1.9 (1.2-3.4) 08/21/17 06:00 [place] # (Auto) 0.9 (0.1-0.6) H 08/21/17 06:00 Eos # (Auto) 0.2 (0.0-0.7) 08/21/17 06:00 Baso # (Auto) 0.00 K/mm3 (0.0-2.0) 08/21/17 06:00 pO2 115 mm/Hg (30-55) H 08/20/17 16:05 VBG pH 7.37 (7.32-7.43) 08/20/17 16:05 VBG pCO2 44.0 (40-60) 08/20/17 16:05 VBG HCO3 25.4 mmol/l (21-28) 08/20/17 16:05 VBG Total CO2 26.8 mmol.L (22-28) 08/20/17 16:05 VBG O2 Sat (Calc) 99.4 % (40-65) H 08/20/17 16:05 VBG Base Excess -0.2 mmol/L (0.0-2.0) L 08/20/17 16:05 VBG Potassium 4.2 mmol/L (3.6-5.2) 08/20/17 16:05 Sodium 141.0 mmol/L (132-148) 08/20/17 16:05 Chloride 107.0 mmol/L (98-107) 08/20/17 16:05 Glucose 86 mg/dl (75-110) 08/20/17 16:05 Lactate 1.9 mmol/L (0.7-2.1) 08/20/17 16:05 FiO2 21.0 % 08/20/17 16:05 Sodium 141 mmol/L (132-148) 08/21/17 06:00 Potassium 3.8 mmol/L (3.6-5.0) 08/21/17 06:00 Chloride 106 mmol/L (98-107) 08/21/17 06:00 Carbon Dioxide 26 mmol/L (21-33) 08/21/17 06:00 Anion Gap 13 (10-20) 08/21/17 06:00 BUN 19 mg/dL (7-21) 08/21/17 06:00 Creatinine 0.9 mg/dl (0.8-1.5) 08/21/17 06:00 Est GFR ( Amer) > 60 08/21/17 06:00 Est GFR (Non-Af Amer) > 60 08/21/17 06:00 Random Glucose 100 mg/dL (70-110) 08/21/17 06:00 Calcium 8.3 mg/dL (8.4-10.5) L 08/21/17 06:00 Phosphorus 3.0 mg/dL (2.5-4.5) 08/20/17 16:00 Magnesium 1.9 mg/dL (1.7-2.2) 08/20/17 16:00 Total Bilirubin 1.0 mg/dL (0.2-1.3) 08/21/17 06:00 AST 36 U/L (17-59) 08/21/17 06:00 ALT 25 U/L (7-56) 08/21/17 06:00 Alkaline Phosphatase 60 U/L (38-126) 08/21/17 06:00 Total Protein 6.2 g/dL (5.8-8.3) 08/21/17 06:00 Albumin 3.5 g/dL (3.0-4.8) 08/21/17 06:00 Globulin 2.8 gm/dL 08/21/17 06:00 Albumin/Globulin Ratio 1.3 (1.1-1.8) 08/21/17 06:00 Lipase 60 U/L (23-300) 08/20/17 13:52 Procalcitonin < 0.05 NG/ML (0.19-0.49) L 08/20/17 16:00 TSH 3rd Generation 0.52 mIU/mL (0.46-4.68) 08/20/17 17:00 Venous Blood Potassium 4.2 mmol/L (3.6-5.2) 08/20/17 16:05 Urine Color Yellow (YELLOW) 08/21/17 06:30 Urine Appearance Clear (CLEAR) 08/21/17 06:30 Urine pH 6.0 (4.7-8.0) 08/21/17 06:30 Ur Specific [place] 1.025 (1.005-1.035) 08/21/17 06:30 Urine Protein Trace mg/dL (<30 mg/dL) H 08/21/17 06:30 Urine Glucose (UA) Negative mg/dL (NEGATIVE) 08/21/17 06:30 Urine Ketones 15 mg/dL (NEGATIVE) H 08/21/17 06:30 Urine Blood Negative (NEGATIVE) 08/21/17 06:30 Urine Nitrate Negative (NEGATIVE) 08/21/17 06:30 Urine Bilirubin Negative (NEGATIVE) 08/21/17 06:30 Urine Urobilinogen 1.0 E.U./dL (<1 E.U./dL) H 08/21/17 06:30 Ur Leukocyte Esterase Negative Mariia/uL (NEGATIVE) 08/21/17 06:30 Urine RBC Negative /hpf (0-2) 08/21/17 06:30 Urine WBC 0 - 2 /hpf (0-6) 08/21/17 06:30 Ur Epithelial Cells 0 - 2 /hpf (0-5) 08/21/17 06:30 Urine Bacteria Neg (NEG) 08/21/17 06:30 Urine Opiates Screen Negative (NEGATIVE) 08/21/17 06:30 Urine Methadone Screen Negative (NEGATIVE) 08/21/17 06:30 Ur Barbiturates Screen Negative (NEGATIVE) 08/21/17 06:30 Ur Phencyclidine Scrn Negative (NEGATIVE) 08/21/17 06:30 Ur Amphetamines Screen Negative (NEGATIVE) 08/21/17 06:30 U Benzodiazepines Scrn Negative (NEGATIVE) 08/21/17 06:30 U Oth Cocaine Metabols Negative (NEGATIVE) 08/21/17 06:30 U Cannabinoids Screen Positive (NEGATIVE) H 08/21/17 06:30 Alcohol, Quantitative 23 mg/dL (0-10) H 08/20/17 16:00 - Hospital Course Hospital Course: On Admission: Patient is a 42 y/o male with PMHx of GI bleed, former alcohol abuser, PUD disease ( s/p surgery x3), tobacco and marijuana abuse, was [place] [facility] [place] and diagnosed with gastritis and duodenitis with erosions on EGD, presenting with diffuse abdominal pain for 1 day. Patient states last night, few minutes after drinking a "little" wine the abdominal pain started, was sharp, non radiating to the back, was 10/10, along with vomiting multiple times, the vomitus was red on occasion. Has not tried any OTC to relieve the pain. States since his last admission he has had on/off abdominal pain, but worst today. Patient admits to smoking lots of marijuana yesterday and today. States he was discharged last time with antacid, doesn't remember taking antibiotic for h. pylori. Admits to not following up with GI upon discharge. Denies Rios Chang, states he took asa on occasion, but has not taking any recently. Was told he has htn, but medication non compliance. Has PMD, but has not followed up in years. Denies cp, sob, no fever, admits to chills, no dysurea, no hematura, no diarrhea. No recent unwanted weight loss. No headache or dizziness. Upon reviewing prior records, patient had positive h. pylori in 03/2017 on EGD path, however upon further inquiring it appears patient was never treated due to lack of follow up. Hospital Course: patient was seen and evaluated by GI. They started the patient on triple therapy for H. pylori infection with instruction to follow up in their office in 14 days after completing the treatment. He was able to tolerate a regular diet and discharge home. Discharge Exam - Head Exam Head Exam: ATRAUMATIC, NORMAL INSPECTION, NORMOCEPHALIC - Eye Exam Eye Exam: EOMI, Normal appearance, PERRL Pupil Exam: NORMAL ACCOMODATION, PERRL - Respiratory Exam Respiratory Exam: Clear to PA & Lateral, NORMAL BREATHING PATTERN, UNREMARKABLE - Cardiovascular Exam Cardiovascular Exam: REGULAR RHYTHM - GI/Abdominal Exam GI & Abdominal Exam: Normal Bowel Sounds, Soft. absent: Distended, Tenderness - Neurological Exam Neurological exam: Alert, CN II-XII Intact, Normal Gait, Oriented x3, Reflexes Normal - Psychiatric Exam Psychiatric exam: Normal Affect, Normal Mood - Skin Skin Exam: Dry, Intact, Normal Color, Warm Discharge Plan - Discharge Medications Prescriptions: Amoxicillin [Amoxil 500 mg Cap] 1,000 mg PO Q12 14 Days cap Clarithromycin [Biaxin Filmtab] 500 mg PO Q12 14 Days tab Pantoprazole [Protonix EC Tab] 40 mg PO 0600,1600 14 Days ect - Follow Up Plan Condition: GOOD Disposition: HOME/ ROUTINE Instructions: Quitting Smoking for Older Adults, Acute Abdomen (Belly Pain), Adult (DC), Nausea and Vomiting, Adult (DC), Drugs to Help You Stop Using Tobacco, Acute Abdominal Pain (DC), Acute Abdominal Pain (GEN) Additional Instructions: Please follow up with Dr. Gloria in his office in 14 days. I have attached his office information. Please call the office when you leave the hospital to make and appointment. I will send you home with three medications. Please take them as directed. You will have a supply for 14 days. Please come back to the ED if symptoms return. Referrals: Froilan Gloria MD [Staff Provider] - <Thi Mejia - Last Filed: 08/21/17 15:43> Provider - Provider Date of Admission: 08/20/17 15:17 Attending physician: Thi Mejia MD Hospital Course - Lab Results Lab Results: Most Recent Lab Values WBC 9.4 10^3/ul (4.5-11.0) D 08/21/17 06:00 RBC 4.31 10^6/uL (3.5-6.1) 08/21/17 06:00 Hgb 13.1 g/dL (14.0-18.0) L D 08/21/17 06:00 Hct 38.1 % (42.0-52.0) L 08/21/17 06:00 MCV 88.4 fl (80.0-105.0) 08/21/17 06:00 MCH 30.4 pg (25.0-35.0) 08/21/17 06:00 MCHC 34.4 g/dl (31.0-37.0) 08/21/17 06:00 RDW 12.8 % (11.5-14.5) 08/21/17 06:00 Plt Count 157 10^3/uL (120.0-450.0) 08/21/17 06:00 MPV 11.8 fl (7.0-11.0) H 08/21/17 06:00 Gran % 68.2 % (50.0-68.0) H 08/21/17 06:00 Lymph % (Auto) 20.3 % (22.0-35.0) L 08/21/17 06:00 [place] % (Auto) 9.7 % (1.0-6.0) H 08/21/17 06:00 Eos % (Auto) 1.8 % (1.5-5.0) 08/21/17 06:00 Baso % (Auto) 0.0 % (0.0-3.0) 08/21/17 06:00 Gran # 6.39 (1.4-6.5) 08/21/17 06:00 Lymph # (Auto) 1.9 (1.2-3.4) 08/21/17 06:00 [place] # (Auto) 0.9 (0.1-0.6) H 08/21/17 06:00 Eos # (Auto) 0.2 (0.0-0.7) 08/21/17 06:00 Baso # (Auto) 0.00 K/mm3 (0.0-2.0) 08/21/17 06:00 pO2 115 mm/Hg (30-55) H 08/20/17 16:05 VBG pH 7.37 (7.32-7.43) 08/20/17 16:05 VBG pCO2 44.0 (40-60) 08/20/17 16:05 VBG HCO3 25.4 mmol/l (21-28) 08/20/17 16:05 VBG Total CO2 26.8 mmol.L (22-28) 08/20/17 16:05 VBG O2 Sat (Calc) 99.4 % (40-65) H 08/20/17 16:05 VBG Base Excess -0.2 mmol/L (0.0-2.0) L 08/20/17 16:05 VBG Potassium 4.2 mmol/L (3.6-5.2) 08/20/17 16:05 Sodium 141.0 mmol/L (132-148) 08/20/17 16:05 Chloride 107.0 mmol/L (98-107) 08/20/17 16:05 Glucose 86 mg/dl (75-110) 08/20/17 16:05 Lactate 1.9 mmol/L (0.7-2.1) 08/20/17 16:05 FiO2 21.0 % 08/20/17 16:05 Sodium 141 mmol/L (132-148) 08/21/17 06:00 Potassium 3.8 mmol/L (3.6-5.0) 08/21/17 06:00 Chloride 106 mmol/L (98-107) 08/21/17 06:00 Carbon Dioxide 26 mmol/L (21-33) 08/21/17 06:00 Anion Gap 13 (10-20) 08/21/17 06:00 BUN 19 mg/dL (7-21) 08/21/17 06:00 Creatinine 0.9 mg/dl (0.8-1.5) 08/21/17 06:00 Est GFR ( Amer) > 60 08/21/17 06:00 Est GFR (Non-Af Amer) > 60 08/21/17 06:00 Random Glucose 100 mg/dL (70-110) 08/21/17 06:00 Calcium 8.3 mg/dL (8.4-10.5) L 08/21/17 06:00 Phosphorus 3.0 mg/dL (2.5-4.5) 08/20/17 16:00 Magnesium 1.9 mg/dL (1.7-2.2) 08/20/17 16:00 Total Bilirubin 1.0 mg/dL (0.2-1.3) 08/21/17 06:00 AST 36 U/L (17-59) 08/21/17 06:00 ALT 25 U/L (7-56) 08/21/17 06:00 Alkaline Phosphatase 60 U/L (38-126) 08/21/17 06:00 Total Protein 6.2 g/dL (5.8-8.3) 08/21/17 06:00 Albumin 3.5 g/dL (3.0-4.8) 08/21/17 06:00 Globulin 2.8 gm/dL 08/21/17 06:00 Albumin/Globulin Ratio 1.3 (1.1-1.8) 08/21/17 06:00 Lipase 60 U/L (23-300) 08/20/17 13:52 Procalcitonin < 0.05 NG/ML (0.19-0.49) L 08/20/17 16:00 TSH 3rd Generation 0.52 mIU/mL (0.46-4.68) 08/20/17 17:00 Venous Blood Potassium 4.2 mmol/L (3.6-5.2) 08/20/17 16:05 Urine Color Yellow (YELLOW) 08/21/17 06:30 Urine Appearance Clear (CLEAR) 08/21/17 06:30 Urine pH 6.0 (4.7-8.0) 08/21/17 06:30 Ur Specific [place] 1.025 (1.005-1.035) 08/21/17 06:30 Urine Protein Trace mg/dL (<30 mg/dL) H 08/21/17 06:30 Urine Glucose (UA) Negative mg/dL (NEGATIVE) 08/21/17 06:30 Urine Ketones 15 mg/dL (NEGATIVE) H 08/21/17 06:30 Urine Blood Negative (NEGATIVE) 08/21/17 06:30 Urine Nitrate Negative (NEGATIVE) 08/21/17 06:30 Urine Bilirubin Negative (NEGATIVE) 08/21/17 06:30 Urine Urobilinogen 1.0 E.U./dL (<1 E.U./dL) H 08/21/17 06:30 Ur Leukocyte Esterase Negative Mariia/uL (NEGATIVE) 08/21/17 06:30 Urine RBC Negative /hpf (0-2) 08/21/17 06:30 Urine WBC 0 - 2 /hpf (0-6) 08/21/17 06:30 Ur Epithelial Cells 0 - 2 /hpf (0-5) 08/21/17 06:30 Urine Bacteria Neg (NEG) 08/21/17 06:30 Urine Opiates Screen Negative (NEGATIVE) 08/21/17 06:30 Urine Methadone Screen Negative (NEGATIVE) 08/21/17 06:30 Ur Barbiturates Screen Negative (NEGATIVE) 08/21/17 06:30 Ur Phencyclidine Scrn Negative (NEGATIVE) 08/21/17 06:30 Ur Amphetamines Screen Negative (NEGATIVE) 08/21/17 06:30 U Benzodiazepines Scrn Negative (NEGATIVE) 08/21/17 06:30 U Oth Cocaine Metabols Negative (NEGATIVE) 08/21/17 06:30 U Cannabinoids Screen Positive (NEGATIVE) H 08/21/17 06:30 Alcohol, Quantitative 23 mg/dL (0-10) H 08/20/17 16:00 Attending/Attestation - Attestation I have personally seen and examined this patient.: Yes I have fully participated in the care of the patient.: Yes I have reviewed all pertinent clinical information, including history, physical exam and plan: Yes Notes (Text): I have seen and examined the patient at bedside. 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 It seems like it was related to Hpylori gastritis. He is on triple therapy and is able to tolerate regular diet. Advised to follow up with GI to confirm eradication in 1-2 months. Counselling provided regarding tobacco use, alcohol and marijuana use. Advised patient to [place] [facility] [place]
[2017-08-21] MEDS ORDERED: Pantoprazole 40 mg EC Tab PO SCH (16:00)
== END 2017-08-21 16:27 | disposition home or self-care (01) ==
LOC: ED 12:42 → ERH 15:17 → 5RSO 17:01
PROVIDERS: ADMIT Internal Medicine; ATTEND Hospitalist
DX: K29.70 Gastritis, unspecified, without bleeding (principal); K29.80 Duodenitis without bleeding; B96.81 Helicobacter pylori [H. pylori] as the cause of diseases classified elsewhere; D72.829 Elevated white blood cell count, unspecified; E86.0 Dehydration; E87.2 Acidosis; F10.11 Alcohol abuse, in remission; F12.10 Cannabis abuse, uncomplicated; F17.200 Nicotine dependence, unspecified, uncomplicated; G43.A0 Cyclical vomiting, in migraine, not intractable; I10 Essential (primary) hypertension; Z87.11 Personal history of peptic ulcer disease; Z90.49 Acquired absence of other specified parts of digestive tract; Z91.14 Patient's other noncompliance with medication regimen
CPT/HCPCS: 36415; 71045; 74022; 80053; 80320; 80324; 80345; 80346; 80349; 80353; 80358; 80361; 81001; 82803; 83690; 83735; 83992; 84100; 84145; 84443; 85025; 87040; 87086; 96361; 96374; 96375; 96376; 99284; C9113; G0378; J1885; J2405; J7040